=== PATIENT | female | born 1975 | race Caucasian/White ===

== ENCOUNTER 2016-07-11 06:19 | Inpatient (IN) | payer MEDICAID ==
[2016-07-11] MEDS ORDERED: Labetalol 5 MG/ML 5 ML Syringe IVPUSH ONE (06:33)
--- NOTE | 2016-07-11 06:36 | EDM.PDOC ---
<Shivam Lee - Last Filed: 07/11/16 06:33> ED HPI GENERAL MEDICAL PROBLEM - General Chief Complaint: Chest Pain Stated Complaint: SHORTNESS OF BREATH Time Seen by Provider: 07/11/16 06:33 Source of Information: Reports: Patient - History of Present Illness INITIAL COMMENTS - FREE TEXT/NARRATIVE: Patient presents with chest pain shortness breath since 1 AM, pain is 5/10 nonradiating not associated with diaphoresis No fever nausea vomiting chills sweats headache dizziness palpitation, she does have some shortness of breath Medications on file History of hypothyroidism, hypertension, COPD, CHF Blood pressure 240/140 HEENT NCAT PERRLA EOMI nares patent oropharynx clear neck supple no meningeal sign Chest clear throughout CV regular rate and rhythm Abdomen obese soft nontender nondistended bowel sounds all 4 quadrants Extremities four-inch motion strength 5 out of 5 no edema 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 Lab as below EKG Chest one view Assessment Hypertensive emergency Plan Labetalol 20 mg IV Left Upper Chest Pain Score (Numeric/FACES): 8 - Related Data Allergies Allergy/AdvReac Type Severity Reaction Status Date / Time No Known Allergies Allergy Verified 07/15/15 14:22 Home Meds: Home Meds Docusate Sodium [Colace] 100 mg PO BID #30 cap 07/19/15 [Rx] Furosemide [Lasix] 40 mg PO DAILY #30 tablet 01/17/16 [Rx] Levothyroxine Sodium [Synthroid] 25 mcg PO DAILY 07/11/16 [History] Losartan Potassium 50 mg PO BID 07/11/16 [History] Verapamil HCl [Verapamil Sr] 240 mg PO DAILY 07/11/16 [History] atorvaSTATin Calcium [Atorvastatin Calcium] 10 mg PO DAILY 07/11/16 [History] Past Medical History HEENT History: Reports: Head Other HEENT History: headaches Cardiovascular History: Reports: Heart Failure, Hypertension, SOB on exertion Respiratory History: Reports: Bronchitis, recurrent, COPD Gastrointestinal History: Reports: None Genitourinary History: Reports: Renal calculus, UTI, recurrent 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: , 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 (see below) Other OB/BYN History: removal of "top layer of cervix" was early [place] Neurological History: Reports: Headaches, chronic, Migraines Psychiatric History: Reports: None Endocrine/Metabolic History: Reports: Hypothyroidism Hematologic History: Reports: None Immunologic History: Reports: None Oncologic (Cancer) History: Reports: Cervix - Infectious Disease History Infectious Disease History: Reports: None - Past Surgical History HEENT Surgical History: Reports: None Cardiovascular Surgical History: Reports: None Respiratory Surgical History: Reports: None GI Surgical History: Reports: Cholecystectomy, Small bowel Female Surgical History: Reports: None Endocrine Surgical History: Reports: None Social & Family History - Family History Family Medical History: Noncontributory Cardiac: Reports: Bypass, Hypertension, [place] Respiratory: Reports: COPD GI: Reports: GI bleed, Other (see below) Other GI Family History: GI bleed from coumadin use Neurological: Reports: CVA Endocrine/Metabolic: Reports: Diabetes, type I, Diabetes, type II, Obesity/MBI 30+ - Tobacco Use Smoking Status *Q: Former Smoker Years of Tobacco use: 20 Packs/Tins Daily: 1 Used Tobacco, but Quit: No Month Tobacco Last Used: Second Hand Smoke Exposure: Yes - Caffeine Use Caffeine Use: Reports: Soda - Recreational Drug Use Recreational Drug Use: No Course - Vital Signs Last Recorded V/S: Last Vital Signs Temp 36.1 C 07/11/16 06:59 Pulse 75 07/11/16 06:59 Resp 16 07/11/16 06:59 BP 200/139 H 07/11/16 06:59 Pulse Ox 98 07/11/16 06:59 - Orders/Labs/Meds Orders: Active Orders 24 hr Category Date Time Status EKG 12 Lead [EKG Documentation Completion] [RC] STAT Care 07/11/16 08:14 Active EKG Documentation Completion [RC] STAT Care 07/11/16 06:32 Active Chest 1V Frontal [CR] Stat Exams 07/11/16 06:32 Taken Nitroglycerin/D5W [Nitroglycerin 25 MG/D5W 250 ML] Med 07/11/16 07:45 Active 25 mg in 250 ml IV TITRATE Sodium Chloride 0.9% [Normal Saline] 1,000 ml Med 07/11/16 06:45 Active IV STAT Medication Orders Sodium Chloride (Normal Saline) 1,000 mls @ 30 mls/hr IV STAT DYLON Last Admin: 07/11/16 06:41 Dose: 30 mls/hr Nitroglycerin/Dextrose (Nitroglycerin 25 Mg/D5w 250 Ml) 25 mg in 250 mls @ 6 mls/hr IV TITRATE DYLON; 10 MCG/MIN PRN Reason: Protocol Last Admin: 07/11/16 07:54 Dose: 10 mcg/min, 6 mls/hr Labs: Laboratory Tests 07/11/16 07/11/16 07/11/16 Range/Units 06:35 06:35 06:35 WBC 15.36 H (4.0-11.0) K/uL RBC 5.39 (4.30-5.90) M/uL Hgb 16.3 H (12.0-16.0) g/dL Hct 48.0 H (36.0-46.0) % MCV 89.1 (80.0-98.0) fL MCH 30.2 (27.0-32.0) pg MCHC 34.0 (31.0-37.0) g/dL RDW Std Deviation 44.5 (28.0-62.0) fl RDW Coeff of Oli 14 (11.0-15.0) % Plt Count 274 (150-400) K/uL MPV 10.80 (7.40-12.00) fL Neut % (Auto) 69.8 (48.0-80.0) % Lymph % (Auto) 21.8 (16.0-40.0) % Bertie % (Auto) 6.6 (0.0-15.0) % Eos % (Auto) 1.3 (0.0-7.0) % Baso % (Auto) 0.5 (0.0-1.5) % Neut # (Auto) 10.7 H (1.4-5.7) K/uL Lymph # (Auto) 3.4 H (0.6-2.4) K/uL Bertie # (Auto) 1.0 H (0.0-0.8) K/uL Eos # (Auto) 0.2 (0.0-0.7) K/uL Baso # (Auto) 0.1 (0.0-0.1) K/uL Sodium 136 (136-146) mmol/L Potassium 2.8 L (3.5-5.1) mmol/L Chloride 97 L (98-110) mmol/L Carbon Dioxide 25 (21-31) mmol/L BUN 22 (6.0-23.0) mg/dL Creatinine 1.4 (0.6-1.5) mg/dL Est Cr Clr Drug Dosing 37.22 mL/min Estimated GFR (MDRD) 41.0 ml/min Glucose 114 H (60-110) mg/dL Calcium 9.0 (8.8-10.8) mg/dL Total Bilirubin 0.6 (0.1-1.5) mg/dL AST 26 (5-40) IU/L ALT 23 (8-54) IU/L Alkaline Phosphatase 95 (40-150) Troponin I < 0.10 (0.0-0.29) NG/ML B-Natriuretic Peptide (<100) PG/ML Total Protein 7.0 (6.0-8.0) g/dL Albumin 3.8 (3.5-5.0) g/dL Globulin 3.2 (2.0-3.5) g/dL Albumin/Globulin Ratio 1.2 L (1.3-2.8) 07/11/16 Range/Units 06:35 WBC (4.0-11.0) K/uL RBC (4.30-5.90) M/uL Hgb (12.0-16.0) g/dL Hct (36.0-46.0) % MCV (80.0-98.0) fL MCH (27.0-32.0) pg MCHC (31.0-37.0) g/dL RDW Std Deviation (28.0-62.0) fl RDW Coeff of Oli (11.0-15.0) % Plt Count (150-400) K/uL MPV (7.40-12.00) fL Neut % (Auto) (48.0-80.0) % Lymph % (Auto) (16.0-40.0) % Bertie % (Auto) (0.0-15.0) % Eos % (Auto) (0.0-7.0) % Baso % (Auto) (0.0-1.5) % Neut # (Auto) (1.4-5.7) K/uL Lymph # (Auto) (0.6-2.4) K/uL Bertie # (Auto) (0.0-0.8) K/uL Eos # (Auto) (0.0-0.7) K/uL Baso # (Auto) (0.0-0.1) K/uL Sodium (136-146) mmol/L Potassium (3.5-5.1) mmol/L Chloride (98-110) mmol/L Carbon Dioxide (21-31) mmol/L BUN (6.0-23.0) mg/dL Creatinine (0.6-1.5) mg/dL Est Cr Clr Drug Dosing mL/min Estimated GFR (MDRD) ml/min Glucose (60-110) mg/dL Calcium (8.8-10.8) mg/dL Total Bilirubin (0.1-1.5) mg/dL AST (5-40) IU/L ALT (8-54) IU/L Alkaline Phosphatase (40-150) Troponin I (0.0-0.29) NG/ML B-Natriuretic Peptide 995 H (<100) PG/ML Total Protein (6.0-8.0) g/dL Albumin (3.5-5.0) g/dL Globulin (2.0-3.5) g/dL Albumin/Globulin Ratio (1.3-2.8) Meds: Medications Generic Name Dose Route Start Last Admin Trade Name Freq PRN Reason Stop Dose Admin Sodium Chloride 1,000 mls @ 30 mls/hr 07/11/16 06:45 07/11/16 06:41 Normal Saline IV 30 mls/hr STAT DYLON Administration Nitroglycerin/Dextrose 25 mg in 250 mls @ 6 mls/hr 07/11/16 07:45 07/11/16 07 :54 Nitroglycerin 25 Mg/D5w 250 Ml IV 10 mcg/min TITRATE DYLON 6 mls/hr Protocol Administration 10 MCG/MIN Discontinued Medications Generic Name Dose Route Start Last Admin Trade Name Freq PRN Reason Stop Dose Admin Aspirin 324 mg 07/11/16 07:47 07/11/16 08:14 Aspirin PO 07/11/16 07:48 Not Given ONETIME ONE Labetalol HCl 20 mg 07/11/16 06:33 07/11/16 06:40 Normodyne IVPUSH 07/11/16 06:34 20 mg .BOLUS ONE Administration Protocol Morphine Sulfate 2 mg 07/11/16 07:37 07/11/16 07:57 Morphine IVPUSH 07/11/16 07:38 2 mg ONETIME ONE Administration Ondansetron HCl 4 mg 04/21/17 07:17 07/11/16 07:21 Zofran IVPUSH 07/11/16 07:18 4 mg ONETIME ONE Administration Departure - Departure Disposition: Admitted As Inpatient 64 Clinical Impression: Hypertensive emergency, Hypertensive heart disease with congestive heart failure, Chest pain Forms: ED Department Discharge - My Orders Last 24 Hours: My Active Orders 07/11/16 07:45 Nitroglycerin/D5W [Nitroglycerin 25 MG/D5W 250 ML] 25 mg in 250 ml IV TITRATE 07/11/16 08:14 EKG 12 Lead [EKG Documentation Completion] [RC] STAT - Assessment/Plan Last 24 Hours: My Active Orders 07/11/16 07:45 Nitroglycerin/D5W [Nitroglycerin 25 MG/D5W 250 ML] 25 mg in 250 ml IV TITRATE 07/11/16 08:14 EKG 12 Lead [EKG Documentation Completion] [RC] STAT <Dc Drake - Last Filed: 07/11/16 08:46> ED HPI GENERAL MEDICAL PROBLEM - History of Present Illness INITIAL COMMENTS - FREE TEXT/NARRATIVE: Patient was placed on nitroglycerin drip in the emergency department repeat EKG demonstrated no interval change patient is markedly improved initial cardiac enzymes were negative hospital as has seen and evaluated patient emerged department patient will be admitted to the intensive care area with hypertensive emergency, chest pain, medical noncompliance, congestive heart failure ED ROS GENERAL - Review of Systems Review Of Systems: ROS reveals no pertinent complaints other than HPI. ED EXAM, GENERAL - Physical Exam Exam: See Below (See dictation) Departure - Departure Time of Disposition: 08:46 Condition: good
[2016-07-11] MEDS ORDERED: Sodium Chloride 0.9% 1,000 ML IV SCH (06:45)
[2016-07-11] MEDS ORDERED: Ondansetron 4 MG/2 ML SDV IVPUSH ONE (07:17)
[2016-07-11] MEDS ORDERED: Morphine 2 MG/ML Syringe IVPUSH ONE (07:37)
[2016-07-11] MEDS ORDERED: Nitroglycerin/D5W 25 MG/250 ML BOTTLE IV SCH ×2 (07:45→09:15)
[2016-07-11] MEDS ORDERED: Aspirin 81 MG Tab.Chew PO ONE (07:47)
--- NOTE | 2016-07-11 08:47 | PCM.HP ---
H&P History of Present Illness - General Date of Service: 07/11/16 - History of Present Illness Initial Comments - Free Text/Narative: This woman presented to the emergency department this morning with complaint of dyspnea. The dyspnea started at about a 100. She has a known prior history of hypertension and congestive heart failure. She's missed some of her medicine. She had run out of it. She has some left-sided chest pain when she first came to the emergency department. This has since resolved. She was treated with nitroglycerin drip her initial blood pressure was greater than one 240/120. She states she had been doing fairly well but last night developed orthopnea. She states she quit smoking within the past month although she had a cigarette yesterday. She does not use alcohol. Left Upper Chest Pain Score (Numeric/FACES): 8 - Related Data Allergies/Adverse Reactions: Allergies Allergy/AdvReac Type Severity Reaction Status Date / Time No Known Allergies Allergy Verified 07/15/15 14:22 Home Medications: Home Meds Docusate Sodium [Colace] 100 mg PO BID #30 cap 07/19/15 [Rx] Furosemide [Lasix] 40 mg PO DAILY #30 tablet 01/17/16 [Rx] Levothyroxine Sodium [Synthroid] 25 mcg PO DAILY 07/11/16 [History] Losartan Potassium 50 mg PO BID 07/11/16 [History] Verapamil HCl [Verapamil Sr] 240 mg PO DAILY 07/11/16 [History] atorvaSTATin Calcium [Atorvastatin Calcium] 10 mg PO DAILY 07/11/16 [History] Past Medical History HEENT History: Reports: Head Other HEENT History: headaches Cardiovascular History: Reports: Heart Failure, High cholesterol, Hypertension, SOB on exertion Respiratory History: Reports: Bronchitis, recurrent, COPD Gastrointestinal History: Reports: None Genitourinary History: Reports: Renal calculus, UTI, recurrent 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 Denies: Alzheimers disease, CVA Psychiatric History: Reports: None Endocrine/Metabolic History: Reports: Hypothyroidism. Denies: Zak's disease , Diabetes, type I, Diabetes, type II Hematologic History: Reports: None Immunologic History: Reports: None Oncologic (Cancer) History: Reports: Cervix - Infectious Disease History Infectious Disease History: Reports: Chicken pox - Past Surgical History HEENT Surgical History: Reports: None Cardiovascular Surgical History: Reports: None, Other (see below) (She underwent coronary angiogram 3 or 4 years ago. She does not remember the results. She's never had stenting done) Respiratory Surgical History: Reports: None GI Surgical History: Reports: Cholecystectomy, Small bowel (Surgery for volvulus.) Female Surgical History: Reports: None Endocrine Surgical History: Reports: None Social & Family History - Family History Family Medical History: Noncontributory Cardiac: Reports: Bypass, Hypertension, [place] Respiratory: Reports: COPD GI: Reports: GI bleed, Other (see below) Other GI Family History: GI bleed from coumadin use Neurological: Reports: CVA Endocrine/Metabolic: Reports: Diabetes, type I, Diabetes, type II, Obesity/MBI 30+ - Tobacco Use Smoking Status *Q: Former Smoker Years of Tobacco use: 20 Packs/Tins Daily: 1 Used Tobacco, but Quit: Yes Month Tobacco Last Used: 05/2016 Tobacco Use Comment: She smokes yesterday. Second Hand Smoke Exposure: Yes - Caffeine Use Caffeine Use: Reports: Coffee - Alcohol Use Alcohol Use Comment: She denies regular alcohol use. - Recreational Drug Use Recreational Drug Use: No H&P Review of Systems - Review of Systems: Review Of Systems: See Below General: Reports: other (She feels hot or flushed). Denies: fever Pulmonary: Reports: Shortness of Breath. Denies: Hemoptysis Cardiovascular: Reports: chest pain (Now resolved) Gastrointestinal: Denies: Abdominal pain, Hematemesis, Hematochezia, Vomiting Genitourinary: Denies: dysuria, frequency, burning, hematuria Neurological: Denies: Confusion Exam - Exam Exam: See Below - Vital Signs Vital Signs: Last Vital Signs Temp 97 F 07/11/16 06:59 Pulse 75 07/11/16 06:59 Resp 16 07/11/16 06:59 BP 200/139 H 07/11/16 06:59 Pulse Ox 98 07/11/16 06:59 Weight: 96.162 kg - Exam General: alert, oriented, cooperative, other (Him dyspnea at rest) HEENT: EOMI Neck: trachea midline Lungs: Clear to auscultation, Other (Increased work of breathing noted.). No: Crackles, Rales Cardiovascular: regular rate, regular rhythm. No: systolic murmur, diastolic murmur Abdomen: soft. No: tenderness Rectal (Female) Exam: Deferred Extremities: edema (1+ ankle edema) Neurological: cranial nerves intact, normal speech Neuro Extensive - Motor, Sensory, Reflexes: No: facial palsy (L), facial palsy ( R), hemiplagia (L), hemiplagia (R) Psychiatric: alert. No: agitated - Patient Data Lab Results last 24 hrs: Laboratory Results - last 24 hr 07/11/16 07/11/16 07/11/16 Range/Units 06:35 06:35 06:35 WBC 15.36 H (4.0-11.0) K/uL RBC 5.39 (4.30-5.90) M/uL Hgb 16.3 H (12.0-16.0) g/dL Hct 48.0 H (36.0-46.0) % MCV 89.1 (80.0-98.0) fL MCH 30.2 (27.0-32.0) pg MCHC 34.0 (31.0-37.0) g/dL RDW Std Deviation 44.5 (28.0-62.0) fl RDW Coeff of Oli 14 (11.0-15.0) % Plt Count 274 (150-400) K/uL MPV 10.80 (7.40-12.00) fL Neut % (Auto) 69.8 (48.0-80.0) % Lymph % (Auto) 21.8 (16.0-40.0) % [place] % (Auto) 6.6 (0.0-15.0) % Eos % (Auto) 1.3 (0.0-7.0) % Baso % (Auto) 0.5 (0.0-1.5) % Neut # (Auto) 10.7 H (1.4-5.7) K/uL Lymph # (Auto) 3.4 H (0.6-2.4) K/uL [place] # (Auto) 1.0 H (0.0-0.8) K/uL Eos # (Auto) 0.2 (0.0-0.7) K/uL Baso # (Auto) 0.1 (0.0-0.1) K/uL Sodium 136 (136-146) mmol/L Potassium 2.8 L (3.5-5.1) mmol/L Chloride 97 L (98-110) mmol/L Carbon Dioxide 25 (21-31) mmol/L BUN 22 (6.0-23.0) mg/dL Creatinine 1.4 (0.6-1.5) mg/dL Est Cr Clr Drug Dosing 37.22 mL/min Estimated GFR (MDRD) 41.0 ml/min Glucose 114 H (60-110) mg/dL Calcium 9.0 (8.8-10.8) mg/dL Total Bilirubin 0.6 (0.1-1.5) mg/dL AST 26 (5-40) IU/L ALT 23 (8-54) IU/L Alkaline Phosphatase 95 (40-150) Troponin I < 0.10 (0.0-0.29) NG/ML B-Natriuretic Peptide (<100) PG/ML Total Protein 7.0 (6.0-8.0) g/dL Albumin 3.8 (3.5-5.0) g/dL Globulin 3.2 (2.0-3.5) g/dL Albumin/Globulin Ratio 1.2 L (1.3-2.8) 07/11/16 Range/Units 06:35 WBC (4.0-11.0) K/uL RBC (4.30-5.90) M/uL Hgb (12.0-16.0) g/dL Hct (36.0-46.0) % MCV (80.0-98.0) fL MCH (27.0-32.0) pg MCHC (31.0-37.0) g/dL RDW Std Deviation (28.0-62.0) fl RDW Coeff of Oli (11.0-15.0) % Plt Count (150-400) K/uL MPV (7.40-12.00) fL Neut % (Auto) (48.0-80.0) % Lymph % (Auto) (16.0-40.0) % [place] % (Auto) (0.0-15.0) % Eos % (Auto) (0.0-7.0) % Baso % (Auto) (0.0-1.5) % Neut # (Auto) (1.4-5.7) K/uL Lymph # (Auto) (0.6-2.4) K/uL [place] # (Auto) (0.0-0.8) K/uL Eos # (Auto) (0.0-0.7) K/uL Baso # (Auto) (0.0-0.1) K/uL Sodium (136-146) mmol/L Potassium (3.5-5.1) mmol/L Chloride (98-110) mmol/L Carbon Dioxide (21-31) mmol/L BUN (6.0-23.0) mg/dL Creatinine (0.6-1.5) mg/dL Est Cr Clr Drug Dosing mL/min Estimated GFR (MDRD) ml/min Glucose (60-110) mg/dL Calcium (8.8-10.8) mg/dL Total Bilirubin (0.1-1.5) mg/dL AST (5-40) IU/L ALT (8-54) IU/L Alkaline Phosphatase (40-150) Troponin I (0.0-0.29) NG/ML B-Natriuretic Peptide 995 H (<100) PG/ML Total Protein (6.0-8.0) g/dL Albumin (3.5-5.0) g/dL Globulin (2.0-3.5) g/dL Albumin/Globulin Ratio (1.3-2.8) Result Diagrams: 07/11/16 06:35 07/11/16 06:35 Alvin Results last 24 hrs: EKG 12-lead shows LVH with repolarization abnormality; sinus rhythm; flipped T waves ST depression particularly anterolaterally. This was compared to prior EKG and noted to have similar findings his prior EKG. Imaging Impressions last 24 hrs: Chest x-ray cardiomegaly *Q Meaningful Use (ADM) - VTE *Q VTE Criteria *Q: - Stroke *Q Stroke Criteria *Q: - AMI *Q AMI Criteria *Q: - Problem List (1) Hypertensive emergency SNOMED Code(s): 277096124206384 ICD Code: I16.1 - HYPERTENSIVE EMERGENCY Status: Acute Current Visit: Yes (2) Congestive heart failure SNOMED Code(s): 17694099 ICD Code: I50.9 - HEART FAILURE, UNSPECIFIED Status: Acute Current Visit : No Problem List Initiated/Reviewed/Updated: Yes Orders Last 24hrs: Active Orders 24 hr Category Date Time Status EKG 12 Lead [EKG Documentation Completion] [RC] STAT Care 07/11/16 08:14 Active EKG Documentation Completion [RC] STAT Care 07/11/16 06:32 Active Chest 1V Frontal [CR] Stat Exams 07/11/16 06:32 Taken Nitroglycerin/D5W [Nitroglycerin 25 MG/D5W 250 ML] Med 07/11/16 07:45 Active 25 mg in 250 ml IV TITRATE Sodium Chloride 0.9% [Normal Saline] 1,000 ml Med 07/11/16 06:45 Active IV STAT Medication Orders Sodium Chloride (Normal Saline) 1,000 mls @ 30 mls/hr IV STAT DYLON Last Admin: 07/11/16 06:41 Dose: 30 mls/hr Nitroglycerin/Dextrose (Nitroglycerin 25 Mg/D5w 250 Ml) 25 mg in 250 mls @ 6 mls/hr IV TITRATE DYLON; 10 MCG/MIN PRN Reason: Protocol Last Admin: 07/11/16 07:54 Dose: 10 mcg/min, 6 mls/hr Assessment/Plan Comment:: see orders ICU on nitroglycerine drip
[2016-07-11] MEDS ORDERED: Ondansetron 4 MG Tab.DIS PO PRN (08:56)
[2016-07-11] MEDS ORDERED: Bisacodyl 5 MG Tab PO PRN (08:56)
[2016-07-11] MEDS ORDERED: Temazepam 15 MG Cap PO PRN (08:56)
[2016-07-11] MEDS: Verapamil 240 MG Tab.ER PO SCH (09:54)
[2016-07-11] MEDS: Potassium Chloride 20 MEQ Tab.ER PO SCH ×2 (09:54→16:20)
[2016-07-11] MEDS: Docusate Sodium 100 MG Cap PO SCH ×2 (09:54→20:02)
[2016-07-11] MEDS: Heparin Sodium 5,000 Units/ML Vial SUBCUT SCH ×2 (09:54→16:19)
--- NOTE | 2016-07-11 10:59 | CR ---
EXAM DATE: 07/11/16 PATIENT'S AGE: 41 Patient: HUGO LACKEY Facility: [place], [place] Site . Site : [id number] Study: XRay Chest [id number]/21/2017 6:41:40 AM Ordering Physician: Doctor Paulino Final Report: HISTORY: Chest pain. FINDINGS: AP portable chest radiograph is compared to 15 July 2015. EKG leads overlying the thorax. There is stable cardiomegaly. Pulmonary vasculature is free of cephalization. No consolidation or pleural effusion is seen. IMPRESSION: Stable cardiomegaly without CHF. Dictated by Cierra Licona MD @ 07/11/2016 7:08:57 AM Dictated by: Cierra Licona MD @ 07/11/2016 07:09:04 (Electronic Signature) Report Signed by Proxy and Original Signed Document filed in the Medical Record. [email or web address]
[2016-07-11] MEDS: Acetaminophen 325 MG Tab PO PRN ×3 (11:18→20:55)
[2016-07-11] MEDS: Morphine 4 MG/ML Syringe IVPUSH PRN ×3 (13:21→20:53)
[2016-07-11] MEDS: Sodium Chloride 0.9% 1,000 ML IV SCH (16:18)
[2016-07-11] MEDS: Ondansetron 4 MG/2 ML SDV IVPUSH PRN ×2 (16:23→20:48)
[2016-07-11] MEDS ORDERED: Furosemide 40 MG/4 ML VIAL IVPUSH ONE (19:33)
--- NOTE | 2016-07-11 19:35 | PCM.SN ---
- Free Text/Narrative Note: she is sleeping comfortably but nurse notes dyspnea with minimal activity. lasix added. She is off of the nitro drip.
[2016-07-11] MEDS: Losartan 50 MG Tab PO SCH (20:02)
[2016-07-12] MEDS: Heparin Sodium 5,000 Units/ML Vial SUBCUT SCH ×3 (00:08→17:06)
[2016-07-12] MEDS: Ondansetron 4 MG/2 ML SDV IVPUSH PRN ×2 (01:16→07:37)
[2016-07-12] MEDS: Morphine 4 MG/ML Syringe IVPUSH PRN ×2 (01:16→07:36)
[2016-07-12] MEDS: Levothyroxine 25 MCG Tab PO SCH (07:22)
[2016-07-12] MEDS: Losartan 50 MG Tab PO SCH ×2 (08:54→20:18)
[2016-07-12] MEDS: Docusate Sodium 100 MG Cap PO SCH ×2 (08:54→20:18)
[2016-07-12] MEDS: Verapamil 240 MG Tab.ER PO SCH (08:54)
[2016-07-12] MEDS: Potassium Chloride 20 MEQ Tab.ER PO SCH ×2 (08:59→17:06)
[2016-07-12] MEDS: atorvaSTATin 10 MG Tab PO SCH (08:59)
--- NOTE | 2016-07-12 11:54 | PCM.PN ---
- General Info Date of Service: 07/12/16 Subjective Update: she feels that her breathing is better but she has a severe global/frontal headache. - Patient Data Vitals - most recent: Last Vital Signs Temp 97 F 07/12/16 08:00 Pulse 77 07/11/16 09:36 Resp 8 L 07/12/16 10:00 BP 159/110 H 07/12/16 10:00 Pulse Ox 94 L 07/12/16 10:00 Weight - most recent: 100.5 kg I&O - last 24 hours: Intake & Output 07/11/16 07/12/16 07/12/16 22:59 06:59 14:59 Intake Total 1086 900 Output Total 300 420 Balance 786 480 Lab Results last 24 hrs: Laboratory Results - last 24 hr 07/11/16 07/11/16 07/11/16 Range/Units 13:08 15:12 20:30 WBC (4.0-11.0) K/uL RBC (4.30-5.90) M/uL Hgb (12.0-16.0) g/dL Hct (36.0-46.0) % MCV (80.0-98.0) fL MCH (27.0-32.0) pg MCHC (31.0-37.0) g/dL RDW Std Deviation (28.0-62.0) fl RDW Coeff of Oli (11.0-15.0) % Plt Count (150-400) K/uL MPV (7.40-12.00) fL Neut % (Auto) (48.0-80.0) % Lymph % (Auto) (16.0-40.0) % [place] % (Auto) (0.0-15.0) % Eos % (Auto) (0.0-7.0) % Baso % (Auto) (0.0-1.5) % Neut # (Auto) (1.4-5.7) K/uL Lymph # (Auto) (0.6-2.4) K/uL [place] # (Auto) (0.0-0.8) K/uL Eos # (Auto) (0.0-0.7) K/uL Baso # (Auto) (0.0-0.1) K/uL Nucleated RBC % /100WBC Nucleated RBCs # K/uL Sodium (136-146) mmol/L Potassium (3.5-5.1) mmol/L Chloride (98-110) mmol/L Carbon Dioxide (21-31) mmol/L BUN (6.0-23.0) mg/dL Creatinine (0.6-1.5) mg/dL Est Cr Clr Drug Dosing mL/min Estimated GFR (MDRD) ml/min Glucose (60-110) mg/dL Calcium (8.8-10.8) mg/dL Phosphorus (2.4-4.7) mg/dL Magnesium (1.5-2.3) mEq/L Total Bilirubin (0.1-1.5) mg/dL AST (5-40) IU/L ALT (8-54) IU/L Alkaline Phosphatase (40-150) Troponin I < 0.10 < 0.10 (0.0-0.29) NG/ML B-Natriuretic Peptide (<100) PG/ML Total Protein (6.0-8.0) g/dL Albumin (3.5-5.0) g/dL Globulin (2.0-3.5) g/dL Albumin/Globulin Ratio (1.3-2.8) Triglycerides (10-190) mg/dL Cholesterol (131-240) mg/dL LDL Cholesterol, Calc (60-180) mg/dL VLDL Cholesterol (5-55) mg/dL HDL Cholesterol (40-80) mg/dL Cholesterol/HDL Ratio (3.3-6.0) Urine Color YELLOW Urine Appearance SLT CLOUDY Urine pH 5.0 (5.0-8.0) Ur Specific [place] >= 1.030 (1.001-1.035) Urine Protein >=300 (NEGATIVE) mg/dL Urine Glucose (UA) NEGATIVE (NEGATIVE) mg/dL Urine Ketones NEGATIVE (NEGATIVE) mg/dL Urine Occult Blood NEGATIVE (NEGATIVE) Urine Nitrite NEGATIVE (NEGATIVE) Urine Bilirubin SMALL H (NEGATIVE) Urine Urobilinogen 0.2 (<2.0) EU/dL Ur Leukocyte Esterase NEGATIVE (NEGATIVE) Urine RBC 0-2 (0-2/HPF) Urine WBC 0-2 (0-5/HPF) Ur Epithelial Cells MODERATE (NONE-FEW) Amorphous Sediment LIGHT (NEGATIVE) Urine Bacteria 1+ H (NEGATIVE) Hyaline Casts 0-3 (0-2/LPF) 07/12/16 07/12/16 07/12/16 Range/Units 05:20 05:20 05:20 WBC 13.41 H (4.0-11.0) K/uL RBC 4.90 (4.30-5.90) M/uL Hgb 14.8 (12.0-16.0) g/dL Hct 45.0 (36.0-46.0) % MCV 91.8 (80.0-98.0) fL MCH 30.2 (27.0-32.0) pg MCHC 32.9 (31.0-37.0) g/dL RDW Std Deviation 47.9 (28.0-62.0) fl RDW Coeff of Oli 14 (11.0-15.0) % Plt Count 291 (150-400) K/uL MPV 11.30 (7.40-12.00) fL Neut % (Auto) 80.5 H (48.0-80.0) % Lymph % (Auto) 15.7 L (16.0-40.0) % [place] % (Auto) 3.6 (0.0-15.0) % Eos % (Auto) 0.1 (0.0-7.0) % Baso % (Auto) 0.1 (0.0-1.5) % Neut # (Auto) 10.8 H (1.4-5.7) K/uL Lymph # (Auto) 2.1 (0.6-2.4) K/uL [place] # (Auto) 0.5 (0.0-0.8) K/uL Eos # (Auto) 0.0 (0.0-0.7) K/uL Baso # (Auto) 0.0 (0.0-0.1) K/uL Nucleated RBC % 0.0 /100WBC Nucleated RBCs # 0 K/uL Sodium 135 L (136-146) mmol/L Potassium 3.5 (3.5-5.1) mmol/L Chloride 98 (98-110) mmol/L Carbon Dioxide 21 (21-31) mmol/L BUN 34 H (6.0-23.0) mg/dL Creatinine 2.2 H (0.6-1.5) mg/dL Est Cr Clr Drug Dosing 23.68 mL/min Estimated GFR (MDRD) 24.4 ml/min Glucose 122 H (60-110) mg/dL Calcium 8.1 L (8.8-10.8) mg/dL Phosphorus 6.7 H (2.4-4.7) mg/dL Magnesium 1.7 (1.5-2.3) mEq/L Total Bilirubin 0.6 (0.1-1.5) mg/dL AST 54 H (5-40) IU/L ALT 57 H (8-54) IU/L Alkaline Phosphatase 101 (40-150) Troponin I (0.0-0.29) NG/ML B-Natriuretic Peptide 557 H (<100) PG/ML Total Protein 6.9 (6.0-8.0) g/dL Albumin 3.8 (3.5-5.0) g/dL Globulin 3.1 (2.0-3.5) g/dL Albumin/Globulin Ratio 1.2 L (1.3-2.8) Triglycerides 270 H (10-190) mg/dL Cholesterol 204 (131-240) mg/dL LDL Cholesterol, Calc 118 (60-180) mg/dL VLDL Cholesterol 54 (5-55) mg/dL HDL Cholesterol 32 L (40-80) mg/dL Cholesterol/HDL Ratio 6.4 H (3.3-6.0) Urine Color Urine Appearance Urine pH (5.0-8.0) Ur Specific [place] (1.001-1.035) Urine Protein (NEGATIVE) mg/dL Urine Glucose (UA) (NEGATIVE) mg/dL Urine Ketones (NEGATIVE) mg/dL Urine Occult Blood (NEGATIVE) Urine Nitrite (NEGATIVE) Urine Bilirubin (NEGATIVE) Urine Urobilinogen (<2.0) EU/dL Ur Leukocyte Esterase (NEGATIVE) Urine RBC (0-2/HPF) Urine WBC (0-5/HPF) Ur Epithelial Cells (NONE-FEW) Amorphous Sediment (NEGATIVE) Urine Bacteria (NEGATIVE) Hyaline Casts (0-2/LPF) Med Orders - Current: Current Medications Acetaminophen (Tylenol) 650 mg PO Q4H PRN PRN Reason: Pain (Mild 1-3)/fever Last Admin: 07/11/16 20:55 Dose: 650 mg Atorvastatin Calcium (Lipitor) 10 mg PO DAILY [facility] Last Admin: 07/12/16 08:59 Dose: 10 mg Bisacodyl (Dulcolax) 5 mg PO DAILY PRN PRN Reason: Constipation Docusate Sodium (Colace) 100 mg PO BID [facility] Last Admin: 07/12/16 08:54 Dose: 100 mg Furosemide (Lasix) 40 mg PO DAILY [facility] Heparin Sodium (Porcine) (Heparin Sodium) 5,000 units SUBCUT Q8H [facility] Last Admin: 07/12/16 08:54 Dose: 5,000 units Sodium Chloride (Normal Saline) 1,000 mls @ 75 mls/hr IV ASDIRECTED [facility] Last Admin: 07/11/16 16:18 Dose: 75 mls/hr Levothyroxine Sodium (Levothyroxine) 25 mcg PO ACBREAKFAST [facility] Last Admin: 07/12/16 07:22 Dose: 25 mcg Losartan Potassium (Cozaar) 50 mg PO BID [facility] Last Admin: 07/12/16 08:54 Dose: 50 mg Morphine Sulfate (Morphine) 4 mg IVPUSH Q2H PRN PRN Reason: Pain (severe 7-10) Last Admin: 07/12/16 07:36 Dose: 4 mg Ondansetron HCl (Zofran Odt) 4 mg PO Q4H PRN PRN Reason: nausea, able to take PO Last Admin: 07/11/16 11:18 Dose: 4 mg Ondansetron HCl (Zofran) 4 mg IVPUSH Q4H PRN PRN Reason: Nausea Last Admin: 07/12/16 07:37 Dose: 4 mg Potassium Chloride (Klor-Con M20) 40 meq PO BIDMEALS [facility] Last Admin: 07/12/16 08:59 Dose: 40 meq Temazepam (Restoril) 15 mg PO BEDTIME PRN PRN Reason: Sleep Verapamil HCl (Calan Sr) 240 mg PO DAILY [facility] Last Admin: 07/12/16 08:54 Dose: 240 mg Discontinued Medications Aspirin (Aspirin) 324 mg PO ONETIME ONE Stop: 07/11/16 07:48 Last Admin: 07/11/16 08:14 Dose: Not Given Furosemide (Lasix) 40 mg IVPUSH NOW ONE Stop: 07/11/16 19:34 Last Admin: 07/11/16 20:02 Dose: 40 mg Sodium Chloride (Normal Saline) 1,000 mls @ 30 mls/hr IV STAT [facility] Last Admin: 07/11/16 06:41 Dose: 30 mls/hr Nitroglycerin/Dextrose (Nitroglycerin 25 Mg/D5w 250 Ml) 25 mg in 250 mls @ 6 mls/hr IV TITRATE [facility]; 10 MCG/MIN PRN Reason: Protocol Last Titration: 07/11/16 16:03 Dose: 5 mcg/min, 3 mls/hr Nitroglycerin/Dextrose (Nitroglycerin 25 Mg/D5w 250 Ml) 25 mg in 250 mls @ 3 mls/hr IV TITRATE [facility]; 5 MCG/MIN PRN Reason: Protocol Labetalol HCl (Normodyne) 20 mg IVPUSH .BOLUS ONE PRN Reason: Protocol Stop: 07/11/16 06:34 Last Admin: 07/11/16 06:40 Dose: 20 mg Morphine Sulfate (Morphine) 2 mg IVPUSH ONETIME ONE Stop: 07/11/16 07:38 Last Admin: 07/11/16 07:57 Dose: 2 mg Ondansetron HCl (Zofran) 4 mg IVPUSH ONETIME ONE Stop: 07/11/16 07:18 Last Admin: 07/11/16 07:21 Dose: 4 mg - Exam General: alert, oriented, cooperative Lungs: Clear to auscultation, Normal respiratory effort Cardiovascular: Regular Rate, Regular Rhythm Abdomen: no tenderness Extremities: no edema Psy/Mental Status: alert, normal affect - Problem List & Annotations (1) Hypertensive emergency SNOMED Code(s): 131069729244782 Code(s): I16.1 - HYPERTENSIVE EMERGENCY Status: Acute Current Visit: Yes (2) Congestive heart failure SNOMED Code(s): 07013101 Code(s): I50.9 - HEART FAILURE, UNSPECIFIED Status: Acute Current Visit: No - Problem List Review Problem List Initiated/Reviewed/Updated: Yes - My Orders Last 24 Hours: My Active Orders 07/11/16 21:00 Losartan [Cozaar] 50 mg PO BID 07/12/16 07:30 Levothyroxine 25 mcg PO ACBREAKFAST 07/12/16 09:00 Furosemide [Lasix] 40 mg PO DAILY atorvaSTATin [Lipitor] 10 mg PO DAILY 07/12/16 12:00 Nitroglycerin [Nitro-Bid 2%] 1 gm TOP Q6H 07/13/16 05:11 B-TYPE NATRIURETIC PEPTIDE,BNP [CHEM] AM CBC WITH AUTO DIFF [HEME] AM COMPREHENSIVE METABOLIC PN,CMP [CHEM] AM MAGNESIUM [CHEM] AM 07/14/16 05:11 B-TYPE NATRIURETIC PEPTIDE,BNP [CHEM] AM CBC WITH AUTO DIFF [HEME] AM COMPREHENSIVE METABOLIC PN,CMP [CHEM] AM MAGNESIUM [CHEM] AM - Plan Plan:: see orders ICU on nitroglycerine deisi Zheng MD 07/12/2016 I spoke with MIGUEL Butler. Will add topical nitrate for HTN. Will hold lasix for this am. monitor creatinine and electrolytes. fentanyl and toradol ordered for headache. Jus Zheng MD
[2016-07-12] MEDS: Furosemide 40 MG Tab PO SCH (11:57)
--- NOTE | 2016-07-12 11:59 | PCM.SN ---
- Free Text/Narrative Note: She told me that she has only had one menses in the past year. It was about two months ago. Her youngest child is twelve years old.
[2016-07-12] MEDS: Nitroglycerin 2% Oint 1 GM UD Packet TOP SCH ×2 (12:00→17:07)
[2016-07-12] MEDS ORDERED: fentaNYL 250 MCG/5 ML SDV IVPUSH PRN (12:07)
[2016-07-12] MEDS ORDERED: Ketorolac 30 MG/ML SDV IVPUSH PRN (12:07)
[2016-07-12] MEDS: fentaNYL 100 MCG/2 ML SDV IVPUSH PRN ×3 (13:21→20:44)
[2016-07-12] MEDS: Sodium Chloride 0.9% 1,000 ML IV SCH (14:36)
[2016-07-13] MEDS: Nitroglycerin 2% Oint 1 GM UD Packet TOP SCH ×2 (00:21→05:53)
[2016-07-13] MEDS: Heparin Sodium 5,000 Units/ML Vial SUBCUT SCH ×3 (00:22→17:47)
[2016-07-13] MEDS: Sodium Chloride 0.9% 1,000 ML IV SCH (03:59)
[2016-07-13] MEDS: Ondansetron 4 MG/2 ML SDV IVPUSH PRN (05:39)
[2016-07-13] MEDS: fentaNYL 100 MCG/2 ML SDV IVPUSH PRN ×3 (05:54→21:11)
[2016-07-13] MEDS: Levothyroxine 25 MCG Tab PO SCH (06:38)
[2016-07-13] MEDS: Docusate Sodium 100 MG Cap PO SCH ×2 (08:22→20:59)
[2016-07-13] MEDS: atorvaSTATin 10 MG Tab PO SCH (08:22)
[2016-07-13] MEDS: Verapamil 240 MG Tab.ER PO SCH (08:22)
[2016-07-13] MEDS: Potassium Chloride 20 MEQ Tab.ER PO SCH ×2 (08:22→17:48)
[2016-07-13] MEDS: Losartan 50 MG Tab PO SCH ×2 (08:23→21:00)
[2016-07-13] MEDS: Furosemide 40 MG Tab PO SCH ×2 (08:28→10:52)
[2016-07-13] MEDS ORDERED: Isosorbide Mononitrate 30 MG Tab.ER PO SCH (09:00)
--- NOTE | 2016-07-13 10:42 | PCM.PN ---
- General Info Date of Service: 07/13/16 Subjective Update: Headache is resolved. She's not feeling short of breath. She is generally feeling much better. - Patient Data Vitals - most recent: Last Vital Signs Temp 97.2 F 07/13/16 07:37 Pulse 70 07/13/16 07:37 Resp 16 07/13/16 07:37 BP 154/91 H 07/13/16 08:23 Pulse Ox 95 07/13/16 09:00 Weight - most recent: 102 kg I&O - last 24 hours: Intake & Output 07/12/16 07/13/16 07/13/16 22:59 06:59 14:59 Intake Total 1300 1500 Output Total 440 1350 Balance 860 150 Lab Results last 24 hrs: Laboratory Results - last 24 hr 07/12/16 07/13/16 07/13/16 Range/Units 05:20 05:10 05:10 WBC 11.87 H (4.0-11.0) K/uL RBC 4.46 (4.30-5.90) M/uL Hgb 13.4 (12.0-16.0) g/dL Hct 41.5 (36.0-46.0) % MCV 93.0 (80.0-98.0) fL MCH 30.0 (27.0-32.0) pg MCHC 32.3 (31.0-37.0) g/dL RDW Std Deviation 49.5 (28.0-62.0) fl RDW Coeff of Oli 15 (11.0-15.0) % Plt Count 258 (150-400) K/uL MPV 11.10 (7.40-12.00) fL Neut % (Auto) 73.9 (48.0-80.0) % Lymph % (Auto) 18.5 (16.0-40.0) % [place] % (Auto) 6.8 (0.0-15.0) % Eos % (Auto) 0.5 (0.0-7.0) % Baso % (Auto) 0.3 (0.0-1.5) % Neut # (Auto) 8.8 H (1.4-5.7) K/uL Lymph # (Auto) 2.2 (0.6-2.4) K/uL [place] # (Auto) 0.8 (0.0-0.8) K/uL Eos # (Auto) 0.1 (0.0-0.7) K/uL Baso # (Auto) 0.0 (0.0-0.1) K/uL Nucleated RBC % 0.0 /100WBC Nucleated RBCs # 0 K/uL Sodium 133 L (136-146) mmol/L Potassium 3.6 (3.5-5.1) mmol/L Chloride 101 (98-110) mmol/L Carbon Dioxide 24 (21-31) mmol/L BUN 26 H (6.0-23.0) mg/dL Creatinine 1.5 (0.6-1.5) mg/dL Est Cr Clr Drug Dosing 34.74 mL/min Estimated GFR (MDRD) 37.9 ml/min Glucose 107 (60-110) mg/dL Calcium 8.0 L (8.8-10.8) mg/dL Magnesium 1.7 (1.5-2.3) mEq/L Total Bilirubin 0.5 (0.1-1.5) mg/dL AST 30 (5-40) IU/L ALT 40 (8-54) IU/L Alkaline Phosphatase 80 (40-150) B-Natriuretic Peptide (<100) PG/ML Total Protein 6.0 (6.0-8.0) g/dL Albumin 3.3 L (3.5-5.0) g/dL Globulin 2.7 (2.0-3.5) g/dL Albumin/Globulin Ratio 1.2 L (1.3-2.8) HCG, Qual NEGATIVE (NEG) 07/13/16 Range/Units 05:10 WBC (4.0-11.0) K/uL RBC (4.30-5.90) M/uL Hgb (12.0-16.0) g/dL Hct (36.0-46.0) % MCV (80.0-98.0) fL MCH (27.0-32.0) pg MCHC (31.0-37.0) g/dL RDW Std Deviation (28.0-62.0) fl RDW Coeff of Oli (11.0-15.0) % Plt Count (150-400) K/uL MPV (7.40-12.00) fL Neut % (Auto) (48.0-80.0) % Lymph % (Auto) (16.0-40.0) % [place] % (Auto) (0.0-15.0) % Eos % (Auto) (0.0-7.0) % Baso % (Auto) (0.0-1.5) % Neut # (Auto) (1.4-5.7) K/uL Lymph # (Auto) (0.6-2.4) K/uL [place] # (Auto) (0.0-0.8) K/uL Eos # (Auto) (0.0-0.7) K/uL Baso # (Auto) (0.0-0.1) K/uL Nucleated RBC % /100WBC Nucleated RBCs # K/uL Sodium (136-146) mmol/L Potassium (3.5-5.1) mmol/L Chloride (98-110) mmol/L Carbon Dioxide (21-31) mmol/L BUN (6.0-23.0) mg/dL Creatinine (0.6-1.5) mg/dL Est Cr Clr Drug Dosing mL/min Estimated GFR (MDRD) ml/min Glucose (60-110) mg/dL Calcium (8.8-10.8) mg/dL Magnesium (1.5-2.3) mEq/L Total Bilirubin (0.1-1.5) mg/dL AST (5-40) IU/L ALT (8-54) IU/L Alkaline Phosphatase (40-150) B-Natriuretic Peptide 378 H (<100) PG/ML Total Protein (6.0-8.0) g/dL Albumin (3.5-5.0) g/dL Globulin (2.0-3.5) g/dL Albumin/Globulin Ratio (1.3-2.8) HCG, Qual (NEG) Alvin Results last 24 hrs: Microbiology 07/11/16 20:30 Urine Culture - Final Urine, Voided MIXED TERENCE >100,000 CFU/ML 07/11/16 15:12 Aerobic Blood Culture - Preliminary Blood - Venous NO GROWTH AFTER 1 DAY Anaerobic Blood Culture - Preliminary NO GROWTH AFTER 1 DAY 07/11/16 15:06 Aerobic Blood Culture - Preliminary Blood NO GROWTH AFTER 1 DAY Anaerobic Blood Culture - Preliminary NO GROWTH AFTER 1 DAY Med Orders - Current: Current Medications Acetaminophen (Tylenol) 650 mg PO Q4H PRN PRN Reason: Pain (Mild 1-3)/fever Last Admin: 07/11/16 20:55 Dose: 650 mg Atorvastatin Calcium (Lipitor) 10 mg PO DAILY [facility] Last Admin: 07/13/16 08:22 Dose: 10 mg Bisacodyl (Dulcolax) 5 mg PO DAILY PRN PRN Reason: Constipation Docusate Sodium (Colace) 100 mg PO BID [facility] Last Admin: 07/13/16 08:22 Dose: 100 mg Fentanyl (Sublimaze) 50 mcg IVPUSH Q1H PRN PRN Reason: Pain Last Admin: 07/13/16 05:54 Dose: 50 mcg Furosemide (Lasix) 40 mg PO DAILY [facility] Last Admin: 07/13/16 08:28 Dose: Not Given Heparin Sodium (Porcine) (Heparin Sodium) 5,000 units SUBCUT Q8H [facility] Last Admin: 07/13/16 08:23 Dose: 5,000 units Sodium Chloride (Normal Saline) 1,000 mls @ 75 mls/hr IV ASDIRECTED [facility] Last Admin: 07/13/16 03:59 Dose: 75 mls/hr Isosorbide Mononitrate (Imdur) 30 mg PO DAILY [facility] Last Admin: 07/13/16 08:22 Dose: 30 mg Levothyroxine Sodium (Levothyroxine) 25 mcg PO ACBREAKFAST [facility] Last Admin: 07/13/16 06:38 Dose: 25 mcg Losartan Potassium (Cozaar) 50 mg PO BID [facility] Last Admin: 07/13/16 08:23 Dose: 50 mg Morphine Sulfate (Morphine) 4 mg IVPUSH Q2H PRN PRN Reason: Pain (severe 7-10) Last Admin: 07/12/16 07:36 Dose: 4 mg Nitroglycerin (Nitro-Bid 2%) 1 gm TOP Q6H [facility] Last Admin: 07/13/16 05:53 Dose: 1 gm Ondansetron HCl (Zofran Odt) 4 mg PO Q4H PRN PRN Reason: nausea, able to take PO Last Admin: 07/11/16 11:18 Dose: 4 mg Ondansetron HCl (Zofran) 4 mg IVPUSH Q4H PRN PRN Reason: Nausea Last Admin: 07/13/16 05:39 Dose: 4 mg Potassium Chloride (Klor-Con M20) 40 meq PO BIDMEALS [facility] Last Admin: 07/13/16 08:22 Dose: 40 meq Temazepam (Restoril) 15 mg PO BEDTIME PRN PRN Reason: Sleep Verapamil HCl (Calan Sr) 240 mg PO DAILY [facility] Last Admin: 07/13/16 08:22 Dose: 240 mg Discontinued Medications Aspirin (Aspirin) 324 mg PO ONETIME ONE Stop: 07/11/16 07:48 Last Admin: 07/11/16 08:14 Dose: Not Given Fentanyl (Sublimaze) 50 mcg IVPUSH Q1H PRN PRN Reason: Pain Furosemide (Lasix) 40 mg IVPUSH NOW ONE Stop: 07/11/16 19:34 Last Admin: 07/11/16 20:02 Dose: 40 mg Sodium Chloride (Normal Saline) 1,000 mls @ 30 mls/hr IV STAT [facility] Last Admin: 07/11/16 06:41 Dose: 30 mls/hr Nitroglycerin/Dextrose (Nitroglycerin 25 Mg/D5w 250 Ml) 25 mg in 250 mls @ 6 mls/hr IV TITRATE [facility]; 10 MCG/MIN PRN Reason: Protocol Last Titration: 07/11/16 16:03 Dose: 5 mcg/min, 3 mls/hr Nitroglycerin/Dextrose (Nitroglycerin 25 Mg/D5w 250 Ml) 25 mg in 250 mls @ 3 mls/hr IV TITRATE [facility]; 5 MCG/MIN PRN Reason: Protocol Ketorolac Tromethamine (Toradol) 30 mg IVPUSH Q6H PRN PRN Reason: Pain Stop: 07/17/16 12:07 Labetalol HCl (Normodyne) 20 mg IVPUSH .BOLUS ONE PRN Reason: Protocol Stop: 07/11/16 06:34 Last Admin: 07/11/16 06:40 Dose: 20 mg Morphine Sulfate (Morphine) 2 mg IVPUSH ONETIME ONE Stop: 07/11/16 07:38 Last Admin: 07/11/16 07:57 Dose: 2 mg Ondansetron HCl (Zofran) 4 mg IVPUSH ONETIME ONE Stop: 07/11/16 07:18 Last Admin: 07/11/16 07:21 Dose: 4 mg - Exam General: alert, oriented Neck: supple, trachea midline Lungs: Clear to auscultation Cardiovascular: Regular Rate, Regular Rhythm - Problem List & Annotations (1) Hypertensive emergency SNOMED Code(s): 613783785464553 Code(s): I16.1 - HYPERTENSIVE EMERGENCY Status: Acute Current Visit: Yes (2) Congestive heart failure SNOMED Code(s): 94622768 Code(s): I50.9 - HEART FAILURE, UNSPECIFIED Status: Acute Current Visit: No - Problem List Review Problem List Initiated/Reviewed/Updated: Yes - My Orders Last 24 Hours: My Active Orders 07/12/16 12:00 Nitroglycerin [Nitro-Bid 2%] 1 gm TOP Q6H 07/12/16 13:16 fentaNYL [Sublimaze] 50 mcg IVPUSH Q1H PRN 07/12/16 14:48 Transfer Patient (Change bed) [ADT] Routine 07/13/16 09:00 Isosorbide Mononitrate [Imdur] 30 mg PO DAILY 07/14/16 05:11 B-TYPE NATRIURETIC PEPTIDE,BNP [CHEM] AM CBC WITH AUTO DIFF [HEME] AM COMPREHENSIVE METABOLIC PN,CMP [CHEM] AM MAGNESIUM [CHEM] AM - Plan Plan:: see orders ICU on nitroglycerine deisi Zheng MD 07/12/2016 I spoke with MIGUEL Butler. Will add topical nitrate for HTN. Will hold lasix for this am. monitor creatinine and electrolytes. fentanyl and toradol ordered for headache. Jus Zheng MD 07/13/2016 Her echocardiogram results/reading is pending. Will restart her oral Lasix today. I note her serum creatinine is improved compared yesterday. Toradol was discontinued because of her renal function she is to ambulate today. She was transferred to medical surgical status yesterday the change to by mouth Imdur today. Anticipate discharge tomorrow likely to
[2016-07-13] MEDS ORDERED: Isosorbide Mononitrate 30 MG Tab.ER PO ONE (10:46)
[2016-07-13] MEDS ORDERED: Polyethylene Glycol 3350 Powder 17 GM Packet PO PRN (13:26)
[2016-07-13] MEDS: Nicotine 21 MG/24 Hr Patch TRDERM SCH (23:24)
[2016-07-14] MEDS: Heparin Sodium 5,000 Units/ML Vial SUBCUT SCH ×2 (00:36→08:11)
[2016-07-14] MEDS: Ondansetron 4 MG/2 ML SDV IVPUSH PRN (04:57)
[2016-07-14] MEDS: Levothyroxine 25 MCG Tab PO SCH (07:16)
[2016-07-14] MEDS: Verapamil 240 MG Tab.ER PO SCH (08:11)
[2016-07-14] MEDS: atorvaSTATin 10 MG Tab PO SCH (08:11)
[2016-07-14] MEDS: Furosemide 40 MG Tab PO SCH (08:14)
[2016-07-14] MEDS: Docusate Sodium 100 MG Cap PO SCH (08:15)
[2016-07-14] MEDS: Losartan 50 MG Tab PO SCH (08:15)
[2016-07-14] MEDS: Potassium Chloride 20 MEQ Tab.ER PO SCH (08:15)
[2016-07-14] MEDS: Nicotine 21 MG/24 Hr Patch TRDERM SCH (08:16)
[2016-07-14] MEDS ORDERED: Isosorbide Mononitrate 30 MG Tab.ER PO SCH (09:00)
--- NOTE | 2016-07-14 09:28 | PCM.DCSUM1 ---
Discharge Summary - Hospital Course Brief History: she was admitted with accelerated HTN and congestive heart failure - Discharge Data Discharge Date: 07/14/16 Discharge Disposition: Home, Self-Care 01 Condition: Fair - Discharge Diagnosis/Problem(s) (1) Hypertensive emergency SNOMED Code(s): 089662372816877 ICD Code: I16.1 - HYPERTENSIVE EMERGENCY Status: Acute Current Visit: Yes (2) Congestive heart failure SNOMED Code(s): 38711863 ICD Code: I50.9 - HEART FAILURE, UNSPECIFIED Status: Acute Current Visit : No - Patient Summary/Data Hospital Course: Her initial blood pressure was 240/120 mmHg. She had severe dyspnea on admission she was given extra Lasix. She was initially treated with a nitroglycerin continuous infusion. She was then treated with nitroglycerin topically and then went Imdur metoprolol XL 50 mg is added on the day of discharge. She is ambulatory without dyspnea on the time of discharge and she feels much better. She did have a severe headache on hospital day one this improved as her blood pressure came down. She also had symptoms of visual scotomata. Her dyspnea is much improved and she feels ready for discharge on the day of discharge the her serum creatinine was 1.4 on admission and increased to 2.2 on the day after admission. This was thought to be due to the use of Lasix extra dosing. Her creatinine is back down to 1.4 on the day of discharge. Followup is being arranged a local primary care physician. Chest x-ray showed cardiomegaly. Echo cardiogram results are pending at the time of discharge IMpression: accelerated Hypertension chf migraine headache chronic kidney disease follow up with local primary care physician , Dr Beck, within a week or so. - Discharge Plan Prescriptions/Med Rec: Isosorbide Mononitrate [Imdur] 60 mg PO DAILY #30 tab.er Metoprolol Succinate [Toprol XL] 50 mg PO DAILY #30 tab.er Home Medications: Home Meds Docusate Sodium [Colace] 100 mg PO BID #30 cap 07/19/15 [Rx] Furosemide [Lasix] 40 mg PO DAILY #30 tablet 01/17/16 [Rx] Levothyroxine Sodium [Synthroid] 25 mcg PO DAILY 07/11/16 [History] Losartan Potassium 50 mg PO BID 07/11/16 [History] Verapamil HCl [Verapamil Sr] 240 mg PO DAILY 07/11/16 [History] atorvaSTATin Calcium [Atorvastatin Calcium] 10 mg PO DAILY 07/11/16 [History] Isosorbide Mononitrate [Imdur] 60 mg PO DAILY #30 tab.er 07/14/16 [Rx] Metoprolol Succinate [Toprol XL] 50 mg PO DAILY #30 tab.er 07/14/16 [Rx] Patient Handouts: Hypertension, [id number], Heart Failure, [id number] Referrals: Amado Beck MD [Physician] - 07/22/16 8:30 am - Patient Data Vitals - Most Recent: Last Vital Signs Temp 98 F 07/14/16 05:00 Pulse 87 07/14/16 07:43 Resp 18 07/14/16 07:43 BP 147/112 H 07/14/16 08:15 Pulse Ox 94 L 07/14/16 09:00 Weight - Most Recent: 102.5 kg I&O - Last 24 hours: Intake & Output 07/13/16 07/14/16 07/14/16 22:59 06:59 14:59 Intake Total 2210 500 Output Total 1355 1550 Balance 855 -1050 Lab Results - Last 24 hrs: Laboratory Results - last 24 hr 07/14/16 07/14/16 07/14/16 Range/Units 05:45 05:45 05:45 WBC 10.19 (4.0-11.0) K/uL RBC 4.49 (4.30-5.90) M/uL Hgb 13.7 (12.0-16.0) g/dL Hct 42.3 (36.0-46.0) % MCV 94.2 (80.0-98.0) fL MCH 30.5 (27.0-32.0) pg MCHC 32.4 (31.0-37.0) g/dL RDW Std Deviation 50.1 (28.0-62.0) fl RDW Coeff of Oli 15 (11.0-15.0) % Plt Count 238 (150-400) K/uL MPV 11.10 (7.40-12.00) fL Neut % (Auto) 63.6 (48.0-80.0) % Lymph % (Auto) 25.7 (16.0-40.0) % [place]royo % (Auto) 8.7 (0.0-15.0) % Eos % (Auto) 1.3 (0.0-7.0) % Baso % (Auto) 0.7 (0.0-1.5) % Neut # (Auto) 6.5 H (1.4-5.7) K/uL Lymph # (Auto) 2.6 H (0.6-2.4) K/uL [place] # (Auto) 0.9 H (0.0-0.8) K/uL Eos # (Auto) 0.1 (0.0-0.7) K/uL Baso # (Auto) 0.1 (0.0-0.1) K/uL Nucleated RBC % 0.0 /100WBC Nucleated RBCs # 0 K/uL Sodium 141 (136-146) mmol/L Potassium 3.5 (3.5-5.1) mmol/L Chloride 105 (98-110) mmol/L Carbon Dioxide 26 (21-31) mmol/L BUN 18 (6.0-23.0) mg/dL Creatinine 1.4 (0.6-1.5) mg/dL Est Cr Clr Drug Dosing 37.22 mL/min Estimated GFR (MDRD) 41.0 ml/min Glucose 118 H (60-110) mg/dL Calcium 8.4 L (8.8-10.8) mg/dL Magnesium 1.8 (1.5-2.3) mEq/L Total Bilirubin 0.3 (0.1-1.5) mg/dL AST 32 (5-40) IU/L ALT 41 (8-54) IU/L Alkaline Phosphatase 96 (40-150) B-Natriuretic Peptide 551 H (<100) PG/ML Total Protein 6.1 (6.0-8.0) g/dL Albumin 3.4 L (3.5-5.0) g/dL Globulin 2.7 (2.0-3.5) g/dL Albumin/Globulin Ratio 1.3 (1.3-2.8) SWATHI Results - Last 24 hrs: Microbiology 07/11/16 15:12 Aerobic Blood Culture - Preliminary Blood - Venous NO GROWTH AFTER 2 DAYS Anaerobic Blood Culture - Preliminary NO GROWTH AFTER 2 DAYS 07/11/16 15:06 Aerobic Blood Culture - Preliminary Blood NO GROWTH AFTER 2 DAYS Anaerobic Blood Culture - Preliminary NO GROWTH AFTER 2 DAYS 07/11/16 20:30 Urine Culture - Final Urine, Voided MIXED TERENCE >100,000 CFU/ML Med Orders - Current: Current Medications Acetaminophen (Tylenol) 650 mg PO Q4H PRN PRN Reason: Pain (Mild 1-3)/fever Last Admin: 07/11/16 20:55 Dose: 650 mg Atorvastatin Calcium (Lipitor) 10 mg PO DAILY [facility] Last Admin: 07/14/16 08:11 Dose: 10 mg Bisacodyl (Dulcolax) 5 mg PO DAILY PRN PRN Reason: Constipation Docusate Sodium (Colace) 100 mg PO BID [facility] Last Admin: 07/14/16 08:15 Dose: 100 mg Fentanyl (Sublimaze) 50 mcg IVPUSH Q1H PRN PRN Reason: Pain Last Admin: 07/13/16 21:11 Dose: 50 mcg Furosemide (Lasix) 40 mg PO DAILY [facility] Last Admin: 07/14/16 08:14 Dose: 40 mg Heparin Sodium (Porcine) (Heparin Sodium) 5,000 units SUBCUT Q8H [facility] Last Admin: 07/14/16 08:11 Dose: 5,000 units Isosorbide Mononitrate (Imdur) 60 mg PO DAILY [facility] Last Admin: 07/14/16 08:15 Dose: 60 mg Levothyroxine Sodium (Levothyroxine) 25 mcg PO ACBREAKFAST [facility] Last Admin: 07/14/16 07:16 Dose: 25 mcg Losartan Potassium (Cozaar) 50 mg PO BID [facility] Last Admin: 07/14/16 08:15 Dose: 50 mg Metoprolol Succinate (Toprol Xl) 50 mg PO DAILY [facility] Morphine Sulfate (Morphine) 4 mg IVPUSH Q2H PRN PRN Reason: Pain (severe 7-10) Last Admin: 07/12/16 07:36 Dose: 4 mg Nicotine (Habitrol) 21 mg TRDERM DAILY [facility] Last Admin: 07/14/16 08:16 Dose: Not Given Ondansetron HCl (Zofran Odt) 4 mg PO Q4H PRN PRN Reason: nausea, able to take PO Last Admin: 07/11/16 11:18 Dose: 4 mg Ondansetron HCl (Zofran) 4 mg IVPUSH Q4H PRN PRN Reason: Nausea Last Admin: 07/14/16 04:57 Dose: 4 mg Polyethylene Glycol (Miralax) 17 gm PO DAILY PRN PRN Reason: Constipation Last Admin: 07/13/16 13:35 Dose: 17 gm Potassium Chloride (Klor-Con M20) 40 meq PO BIDMEALS [facility] Last Admin: 07/14/16 08:15 Dose: 40 meq Temazepam (Restoril) 15 mg PO BEDTIME PRN PRN Reason: Sleep Verapamil HCl (Calan Sr) 240 mg PO DAILY [facility] Last Admin: 07/14/16 08:11 Dose: 240 mg Discontinued Medications Aspirin (Aspirin) 324 mg PO ONETIME ONE Stop: 07/11/16 07:48 Last Admin: 07/11/16 08:14 Dose: Not Given Fentanyl (Sublimaze) 50 mcg IVPUSH Q1H PRN PRN Reason: Pain Furosemide (Lasix) 40 mg IVPUSH NOW ONE Stop: 07/11/16 19:34 Last Admin: 07/11/16 20:02 Dose: 40 mg Sodium Chloride (Normal Saline) 1,000 mls @ 30 mls/hr IV STAT [facility] Last Admin: 07/11/16 06:41 Dose: 30 mls/hr Nitroglycerin/Dextrose (Nitroglycerin 25 Mg/D5w 250 Ml) 25 mg in 250 mls @ 6 mls/hr IV TITRATE DYLON; 10 MCG/MIN PRN Reason: Protocol Last Titration: 07/11/16 16:03 Dose: 5 mcg/min, 3 mls/hr Nitroglycerin/Dextrose (Nitroglycerin 25 Mg/D5w 250 Ml) 25 mg in 250 mls @ 3 mls/hr IV TITRATE DYLON; 5 MCG/MIN PRN Reason: Protocol Sodium Chloride (Normal Saline) 1,000 mls @ 75 mls/hr IV ASDIRECTED [facility] Last Admin: 07/13/16 03:59 Dose: 75 mls/hr Isosorbide Mononitrate (Imdur) 30 mg PO DAILY [facility] Last Admin: 07/13/16 08:22 Dose: 30 mg Isosorbide Mononitrate (Imdur) 30 mg PO ONETIME ONE Stop: 07/13/16 10:47 Last Admin: 07/13/16 10:51 Dose: 30 mg Ketorolac Tromethamine (Toradol) 30 mg IVPUSH Q6H PRN PRN Reason: Pain Stop: 07/17/16 12:07 Labetalol HCl (Normodyne) 20 mg IVPUSH .BOLUS ONE PRN Reason: Protocol Stop: 07/11/16 06:34 Last Admin: 07/11/16 06:40 Dose: 20 mg Morphine Sulfate (Morphine) 2 mg IVPUSH ONETIME ONE Stop: 07/11/16 07:38 Last Admin: 07/11/16 07:57 Dose: 2 mg Nitroglycerin (Nitro-Bid 2%) 1 gm TOP Q6H [facility] Last Admin: 07/13/16 05:53 Dose: 1 gm Ondansetron HCl (Zofran) 4 mg IVPUSH ONETIME ONE Stop: 07/11/16 07:18 Last Admin: 07/11/16 07:21 Dose: 4 mg *Q Meaningful Use (DIS) - VTE *Q VTE Criteria *Q: - Stroke *Q Stroke Criteria *Q: - AMI *Q AMI Criteria *Q:
[2016-07-14] MEDS ORDERED: Metoprolol Succinate 50 MG Tab.ER PO SCH (09:30)
[2016-07-14 10:55] VITALS: BP 144/86
--- NOTE | 2016-07-14 11:45 | ECHO ---
EXAM DATE: 07/11/16 The echocardiogram report can be seen in this patient's EMR (Electronic Medical Record) in the Reports section. [email or web address]
== END 2016-07-14 12:05 | disposition home or self-care (01) | DRG 305 ==
LOC: MW.ED 06:19 → MW.ICU 08:46 → MW.MS 07-13 11:49
PROVIDERS: ADMIT Family Medicine; ATTEND Family Medicine
DX: I16.1 Hypertensive emergency (principal); I50.9 Heart failure, unspecified; G43.909 Migraine, unspecified, not intractable, without status migrainosus; I12.9 Hypertensive chronic kidney disease with stage 1 through stage 4 chronic kidney disease, or unspecified chronic kidney disease; N18.9 Chronic kidney disease, unspecified; E78.00 Pure hypercholesterolemia, unspecified; E13.9 Other specified diabetes mellitus without complications; Z85.41 Personal history of malignant neoplasm of cervix uteri; Z79.899 Other long term (current) drug therapy; Z87.891 Personal history of nicotine dependence
CPT/HCPCS: 36415; 71010; 71010-26; 80053; 80061; 81001; 83735; 83880; 84100; 84484; 84703; 85025; 87040; 87086; 93005; 93306; 96361; 96365; 96366; 96375; 99284; 99285-25; A9270-GY; J1644; J1940; J2270; J2405; J3010; J7040

== ENCOUNTER 2016-08-22 11:37 | Inpatient (IN) | payer MEDICAID ==
[2016-08-22] MEDS ORDERED: Sodium Chloride 0.9% 10 ML Syringe FLUSH PRN ×2 (12:34→15:51)
[2016-08-22] MEDS ORDERED: Sodium Chloride 0.9% 2.5 ML Syringe FLUSH PRN ×2 (12:34→15:51)
--- NOTE | 2016-08-22 12:51 | EDM.PDOC ---
ED HPI GENERAL MEDICAL PROBLEM - General Chief Complaint: General Stated Complaint: MED REFILL Time Seen by Provider: 08/22/16 12:30 Source of Information: Reports: Patient History Limitations: Reports: No Limitations - History of Present Illness INITIAL COMMENTS - FREE TEXT/NARRATIVE: History of present illness: [41-year-old female coming in complaining of acute exacerbation of her congestive heart failure, and that she is again out of meds. Patient became she does have a doctor's appointment a to be worked up and to get routine prescriptions but in the meantime she short of breath and has exertional issues. ] Review of systems: As per history of present illness and below otherwise all systems reviewed and negative. Past medical history: As per history of present illness and as reviewed below otherwise noncontributory. Surgical history: As per history of present illness and as reviewed below otherwise noncontributory. Social history: No reported history of drug or alcohol abuse. Family history: As per history of present illness and as reviewed below otherwise noncontributory. Physical exam: HEENT: Atraumatic, normocephalic, pupils reactive, negative for conjunctival pallor or scleral icterus, mucous membranes moist, throat clear, neck supple, nontender, trachea midline. Lungs: Clear to auscultation, breath sounds equal bilaterally, chest nontender. Heart: S1S2, regular, negative for clicks, rubs, or JVD. Abdomen: Soft, nondistended, nontender. Negative for masses or hepatosplenomegaly. Negative for costovertebral tenderness. Pelvis: Stable nontender. Genitourinary: Deferred. Rectal: Deferred. Extremities: peripheral edema bilaterally, negative for cords or calf pain. Neurovascular unremarkable. Neuro: Awake, alert, oriented. Cranial nerves II through XII unremarkable. Cerebellum unremarkable. Motor and sensory unremarkable throughout. Exam nonfocal. Patient has significantly high BP and continues to have high BP throughout her visit Save 2-3+ pitting edema is to bilateral lower extremities well assessment was benign save subjective complaint of exertional dyspnea. Chest x-ray is negative for CHF at this time. Diagnostics: [CXR, CBC, CMP, ] Therapeutics: [] Impression: [edema] Plan: [admit for bp control Definitive disposition and diagnosis as appropriate pending reevaluation and review of above. - Related Data Allergies Allergy/AdvReac Type Severity Reaction Status Date / Time No Known Allergies Allergy Verified 08/22/16 12:08 Home Meds: Home Meds Docusate Sodium [Colace] 100 mg PO BID #30 cap 07/19/15 [Rx] Furosemide [Lasix] 40 mg PO DAILY #30 tablet 01/17/16 [Rx] Levothyroxine Sodium [Synthroid] 25 mcg PO DAILY 07/11/16 [History] Losartan Potassium 50 mg PO BID 07/11/16 [History] Verapamil HCl [Verapamil Sr] 240 mg PO DAILY 07/11/16 [History] atorvaSTATin Calcium [Atorvastatin Calcium] 10 mg PO DAILY 07/11/16 [History] Isosorbide Mononitrate [Imdur] 60 mg PO DAILY #30 tab.er 07/14/16 [Rx] Metoprolol Succinate [Toprol XL] 50 mg PO DAILY #30 tab.er 07/14/16 [Rx] Furosemide [Lasix] 40 mg PO DAILY #10 tablet 08/22/16 [Rx] Losartan Potassium 50 mg PO BID #20 tablet 08/22/16 [Rx] Past Medical History HEENT History: Reports: Head Other HEENT History: headaches Cardiovascular History: Reports: Heart Failure, High Cholesterol, Hypertension, SOB on Exertion Respiratory History: Reports: Bronchitis, Recurrent, COPD Other Respiratory History: not on home 02 Gastrointestinal History: Reports: None Genitourinary History: Reports: Renal Calculus, UTI, Recurrent [employer] History: Reports: , Other (See Below) Other OB/BYN History: removal of "top layer of cervix" was early CA Neurological History: Reports: Headaches, Chronic, Migraines Psychiatric History: Reports: None Endocrine/Metabolic History: Reports: Hypothyroidism Hematologic History: Reports: None Immunologic History: Reports: None Oncologic (Cancer) History: Reports: Cervix - Infectious Disease History Infectious Disease History: Reports: Chicken Pox - Past Surgical History HEENT Surgical History: Reports: None GI Surgical History: Reports: Cholecystectomy, Small Bowel Endocrine Surgical History: Reports: None Social & Family History - Family History Family Medical History: Noncontributory Cardiac: Reports: Bypass, Hypertension, CA Respiratory: Reports: COPD GI: Reports: GI bleed, Other (See Below) Other GI Family History: GI bleed from coumadin use Neurological: Reports: CVA Endocrine/Metabolic: Reports: Diabetes, Type I, Diabetes, type II, Obesity/MBI 30+ - Tobacco Use Smoking Status *Q: Former Smoker Years of Tobacco use: 20 Packs/Tins Daily: 1 Used Tobacco, but Quit: Yes Month Tobacco Last Used: 3 months ago Second Hand Smoke Exposure: No - Caffeine Use Caffeine Use: Reports: Soda Caffeine Use Comment: 1 drink/day - Recreational Drug Use Recreational Drug Use: No ED ROS GENERAL - Review of Systems Review Of Systems: See Below (see hpi) ED EXAM, GENERAL - Physical Exam Exam: See Below (see hpi) Course - Vital Signs Last Recorded V/S: Last Vital Signs Temp 36.0 C 08/22/16 11:55 Pulse 89 08/22/16 14:24 Resp 15 08/22/16 14:24 BP 213/124 H 08/22/16 14:24 Pulse Ox 93 L 08/22/16 14:24 - Orders/Labs/Meds Orders: Active Orders 24 hr Category Date Time Status CXR [Chest 2V] [CR] Stat Exams 08/22/16 12:55 Taken DRUG SCREEN, SERUM REFLEX [REF] Stat Lab 08/22/16 14:47 Ordered UA W/MICROSCOPIC [URIN] Stat Lab 08/22/16 14:47 Uncollected Sodium Chloride 0.9% [Saline Flush] Med 08/22/16 12:34 Active 10 ml FLUSH ASDIRECTED PRN Sodium Chloride 0.9% [Saline Flush] Med 08/22/16 12:34 Active 2.5 ml FLUSH ASDIRECTED PRN Saline Lock Insert [OM.PC] Stat Oth 08/22/16 12:33 Ordered Medication Orders Sodium Chloride (Saline Flush) 10 ml FLUSH ASDIRECTED PRN PRN Reason: Keep Vein Open Sodium Chloride (Saline Flush) 2.5 ml FLUSH ASDIRECTED PRN PRN Reason: Keep Vein Open Labs: Laboratory Tests 08/22/16 08/22/16 08/22/16 Range/Units 12:49 12:49 12:49 WBC 10.85 (4.0-11.0) K/uL RBC 4.40 (4.30-5.90) M/uL Hgb 13.5 (12.0-16.0) g/dL Hct 40.9 (36.0-46.0) % MCV 93.0 (80.0-98.0) fL MCH 30.7 (27.0-32.0) pg MCHC 33.0 (31.0-37.0) g/dL RDW Std Deviation 51.7 (28.0-62.0) fl RDW Coeff of Oli 16 H (11.0-15.0) % Plt Count 221 (150-400) K/uL MPV 10.40 (7.40-12.00) fL Neut % (Auto) 73.3 (48.0-80.0) % Lymph % (Auto) 17.9 (16.0-40.0) % [place] % (Auto) 5.5 (0.0-15.0) % Eos % (Auto) 2.9 (0.0-7.0) % Baso % (Auto) 0.4 (0.0-1.5) % Neut # (Auto) 8.0 H (1.4-5.7) K/uL Lymph # (Auto) 1.9 (0.6-2.4) K/uL [place] # (Auto) 0.6 (0.0-0.8) K/uL Eos # (Auto) 0.3 (0.0-0.7) K/uL Baso # (Auto) 0.0 (0.0-0.1) K/uL Nucleated RBC % 0.0 /100WBC Nucleated RBCs # 0 K/uL Sodium 139 (136-146) mmol/L Potassium 3.9 (3.5-5.1) mmol/L Chloride 108 (98-110) mmol/L Carbon Dioxide 21 (21-31) mmol/L BUN 13 (6.0-23.0) mg/dL Creatinine 1.3 (0.6-1.5) mg/dL Est Cr Clr Drug Dosing 40.08 mL/min Estimated GFR (MDRD) 44.7 ml/min Glucose 90 (60-110) mg/dL Calcium 8.8 (8.8-10.8) mg/dL Total Bilirubin 0.7 (0.1-1.5) mg/dL AST 19 (5-40) IU/L ALT 23 (8-54) IU/L Alkaline Phosphatase 87 (40-150) B-Natriuretic Peptide 483 H (<100) PG/ML Total Protein 6.9 (6.0-8.0) g/dL Albumin 3.9 (3.5-5.0) g/dL Globulin 3.0 (2.0-3.5) g/dL Albumin/Globulin Ratio 1.3 (1.3-2.8) Meds: Medications Generic Name Dose Route Start Last Admin Trade Name Camilla PRN Reason Stop Dose Admin Sodium Chloride 10 ml 08/22/16 12:34 Saline Flush FLUSH ASDIRECTED PRN Keep Vein Open Sodium Chloride 2.5 ml 08/22/16 12:34 Saline Flush FLUSH ASDIRECTED PRN Keep Vein Open Discontinued Medications Generic Name Dose Route Start Last Admin Trade Name Camilla PRN Reason Stop Dose Admin Furosemide 40 mg 08/22/16 14:10 08/22/16 14:24 Lasix IVPUSH 08/22/16 14:11 40 mg NOW ONE Administration Potassium Chloride 40 meq 08/22/16 14:10 08/22/16 14:29 Klor-Con M20 PO 08/22/16 14:11 40 meq ONETIME ONE Administration Departure - Departure Time of Disposition: 14:20 Disposition: Admitted As Inpatient 64 Condition: good Clinical Impression: CHF, Congestive heart failure, Hypertension - Discharge Information Prescriptions: Furosemide [Lasix] 40 mg PO DAILY #10 tablet Losartan Potassium 50 mg PO BID #20 tablet Referrals: PCP,Unknown [Primary Care Provider] - Forms: ED Department Discharge - My Orders Last 24 Hours: My Active Orders 08/22/16 12:33 Saline Lock Insert [OM.PC] Stat 08/22/16 12:34 Sodium Chloride 0.9% [Saline Flush] 10 ml FLUSH ASDIRECTED PRN Sodium Chloride 0.9% [Saline Flush] 2.5 ml FLUSH ASDIRECTED PRN 08/22/16 12:55 CXR [Chest 2V] [CR] Stat 08/22/16 14:47 DRUG SCREEN, SERUM REFLEX [REF] Stat UA W/MICROSCOPIC [URIN] Stat - Assessment/Plan Last 24 Hours: My Active Orders 08/22/16 12:33 Saline Lock Insert [OM.PC] Stat 08/22/16 12:34 Sodium Chloride 0.9% [Saline Flush] 10 ml FLUSH ASDIRECTED PRN Sodium Chloride 0.9% [Saline Flush] 2.5 ml FLUSH ASDIRECTED PRN 08/22/16 12:55 CXR [Chest 2V] [CR] Stat 08/22/16 14:47 DRUG SCREEN, SERUM REFLEX [REF] Stat UA W/MICROSCOPIC [URIN] Stat
[2016-08-22] MEDS ORDERED: Furosemide 40 MG/4 ML VIAL IVPUSH ONE (14:10)
[2016-08-22] MEDS ORDERED: Potassium Chloride 20 MEQ Tab.ER PO ONE (14:10)
[2016-08-22] MEDS ORDERED: cloNIDine 0.1 MG Tab PO ONE (14:51)
[2016-08-22] MEDS: Metoprolol Tartrate 5 MG/5 ML SDV IVPUSH SCH ×3 (15:10→15:34)
--- NOTE | 2016-08-22 15:11 | CR ---
EXAM DATE: 08/22/16 PATIENT'S AGE: 41 Patient: HUGO LACKEY Facility: [place], [place] Site . Site : [id number] Study: XRay Chest [id number]/2/2017 1:25:32 PM Ordering Physician: Doctor Paulino Final Report: INDICATIONS: Shortness of breath. TECHNIQUE: Chest 2 view. COMPARISON: Chest radiograph July 11, 2016. FINDINGS: No pneumothorax, pleural effusion or airspace consolidation. No pulmonary edema. Cardiomegaly, unchanged. Mediastinal contours are stable. Upper abdomen and osseous structures show no acute abnormality. IMPRESSION: No evidence of acute cardiopulmonary disease. Dictated by Greg Wei MD @ 08/22/2016 1:37:18 PM Dictated by: Greg Wei MD @ 08/22/2016 13:37:25 (Electronic Signature) Report Signed by Proxy. [facility]ENTERLidya
[2016-08-22] MEDS ORDERED: Acetaminophen 325 MG Tab PO PRN (15:51)
[2016-08-22] MEDS ORDERED: Morphine 2 MG/ML Syringe IVPUSH PRN (15:51)
[2016-08-22] MEDS ORDERED: Ondansetron 4 MG Tab.DIS PO PRN (15:51)
[2016-08-22] MEDS ORDERED: Nitroglycerin/D5W 25 MG/250 ML BOTTLE IV SCH (16:00)
--- NOTE | 2016-08-22 16:02 | PCM.HP ---
H&P History of Present Illness - General Date of Service: 08/22/16 Admit Problem/Dx: Admission Diagnosis/Problem Admission Diagnosis/Problem Hypertensive heart disease with congestive heart failure Source of Information: Patient History Limitations: Reports: No Limitations - History of Present Illness Onset of Symptoms: Reports: Gradual Duration of Symptoms: Reports: Week(s):, Chronic, Getting Worse Severity: Moderate Improves with: Reports: None Worsens with: Reports: None headache Pain Score (Numeric/FACES): 10 - Related Data Allergies/Adverse Reactions: Allergies Allergy/AdvReac Type Severity Reaction Status Date / Time No Known Allergies Allergy Verified 08/22/16 12:08 Home Medications: Home Meds Furosemide [Lasix] 40 mg PO DAILY #30 tablet 01/17/16 [Rx] Levothyroxine Sodium [Synthroid] 25 mcg PO DAILY 07/11/16 [History] Losartan Potassium 50 mg PO BID 07/11/16 [History] Verapamil HCl [Verapamil Sr] 240 mg PO DAILY 07/11/16 [History] atorvaSTATin Calcium [Atorvastatin Calcium] 10 mg PO DAILY 07/11/16 [History] Metoprolol Succinate [Toprol XL] 50 mg PO DAILY #30 tab.er 07/14/16 [Rx] Potassium Chloride 10 meq PO DAILY 08/22/16 [History] Past Medical History HEENT History: Reports: Head Other HEENT History: headaches Cardiovascular History: Reports: Heart Failure, High Cholesterol, Hypertension, SOB on Exertion Respiratory History: Reports: Bronchitis, Recurrent, COPD Other Respiratory History: not on home 02 Gastrointestinal History: Reports: None Genitourinary History: Reports: Renal Calculus, UTI, 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: , Other (See Below) Other OB/BYN History: removal of "top layer of cervix" was early [place] Neurological History: Reports: Headaches, Chronic, Migraines Psychiatric History: Reports: None Endocrine/Metabolic History: Reports: Hypothyroidism Hematologic History: Reports: None Immunologic History: Reports: None Oncologic (Cancer) History: Reports: Cervix - Infectious Disease History Infectious Disease History: Reports: Chicken Pox - Past Surgical History HEENT Surgical History: Reports: None GI Surgical History: Reports: Cholecystectomy, Small Bowel Endocrine Surgical History: Reports: None Social & Family History - Family History Family Medical History: Noncontributory Cardiac: Reports: Bypass, Hypertension, OR Respiratory: Reports: COPD GI: Reports: GI bleed, Other (See Below) Other GI Family History: GI bleed from coumadin use Neurological: Reports: CVA Endocrine/Metabolic: Reports: Diabetes, Type I, Diabetes, type II, Obesity/MBI 30+ - Tobacco Use Smoking Status *Q: Former Smoker Years of Tobacco use: 20 Packs/Tins Daily: 1 Used Tobacco, but Quit: Yes Month Tobacco Last Used: 3 months ago Second Hand Smoke Exposure: No - Caffeine Use Caffeine Use: Reports: Soda Caffeine Use Comment: 1 drink/day - Recreational Drug Use Recreational Drug Use: No H&P Review of Systems - Review of Systems: Review Of Systems: See Below General: Reports: Weakness, Fatigue HEENT: Reports: Headaches Pulmonary: Reports: No Symptoms Cardiovascular: Reports: No Symptoms Gastrointestinal: Reports: No Symptoms Genitourinary: Reports: No Symptoms Musculoskeletal: Reports: No Symptoms Skin: Reports: No Symptoms Psychiatric: Reports: No Symptoms Neurological: Reports: No Symptoms Hematologic/Lymphatic: Reports: No Symptoms Immunologic: Reports: No Symptoms Exam - Exam Exam: See Below - Vital Signs Vital Signs: Last Vital Signs Temp 36.0 C 08/22/16 11:55 Pulse 77 08/22/16 15:34 Resp 15 08/22/16 14:24 BP 185/115 H 08/22/16 15:34 Pulse Ox 93 L 08/22/16 14:24 Weight: 107.5 kg - Exam Quality Assessment: No: Supplemental Oxygen General: Alert, Oriented, Cooperative HEENT: Conjunctiva Clear, EACs Clear, Mucosa Moist & [place], Nares Patent Neck: Supple, Trachea Midline. No: Lymphadenopathy Lungs: Clear to Auscultation, Normal Respiratory Effort Cardiovascular: Regular Rate, Regular Rhythm Abdomen: Normal Bowel Sounds, Soft. No: Peritoneal Signs Back Exam: Normal Inspection Extremities: Edema Skin: Warm, Dry, Intact Neurological: Cranial Nerves Intact Neuro Extensive - Mental Status: Alert, Oriented x3 Neuro Extensive - Motor, Sensory, Reflexes: Normal Gait Psychiatric: Alert, Normal Affect, Normal Mood - Patient Data Result Diagrams: 08/23/16 05:14 08/23/16 05:14 *Q Meaningful Use (ADM) - VTE *Q VTE Criteria *Q: - VTE Risk Assess *Q Each Risk Factor Represents 1 Point: Age 41 - 59 years, Swollen Legs, Current, Obesity (BMI greater than 30), Congestive Heart Failure, Less than 1 Month Total Score 1 Point Risk Factors: 4 - Stroke *Q Stroke Criteria *Q: - AMI *Q AMI Criteria *Q: - Problem List (1) Hypertensive heart disease with congestive heart failure SNOMED Code(s): 9706277 ICD Code: I11.0 - HYPERTENSIVE HEART DISEASE WITH HEART FAILURE Status: Chronic Priority: High Current Visit: Yes Problem Details: noncompliant due to financial considerations (2) CHF, Congestive heart failure SNOMED Code(s): 81618258 ICD Code: I50.9 - HEART FAILURE, UNSPECIFIED Status: Acute Priority: High Current Visit: Yes (3) Chest pain SNOMED Code(s): 29306583 ICD Code: R07.9 - CHEST PAIN, UNSPECIFIED Status: Acute Priority: Medium Current Visit: Yes Qualifiers: Chest pain type: chest pain on breathing Qualified Code(s): R07.1 - Chest pain on breathing Problem List Initiated/Reviewed/Updated: Yes Orders Last 24hrs: Active Orders 24 hr Category Date Time Status Patient Status [ADT] Routine ADT 08/22/16 15:51 Ordered Notify Provider Consults [RC] ASDIRECTED Care 08/22/16 15:57 Ordered Oxygen Therapy [RC] PRN Care 08/22/16 15:51 Ordered Up ad Meagan [RC] ASDIRECTED Care 08/22/16 15:51 Ordered VTE/DVT Education [RC] PER UNIT ROUTINE Care 08/22/16 15:51 Ordered Vital Signs [RC] Q4H Care 08/22/16 15:51 Ordered Consult to Physician [CONS] Routine Cons 08/22/16 15:51 Ordered 2 Gram Sodium Diet [DIET] Diet 08/22/16 Dinner Ordered CBC WITH AUTO DIFF [HEME] AM Lab 08/23/16 05:11 Ordered COMPREHENSIVE METABOLIC PN,CMP [CHEM] AM Lab 08/23/16 05:11 Ordered Acetaminophen [Tylenol] Med 08/22/16 15:51 Ordered 650 mg PO Q4H PRN Furosemide [Lasix] Med 08/23/16 09:00 Ordered 40 mg PO DAILY Levothyroxine Med 08/23/16 09:00 Ordered 25 mcg PO DAILY Losartan [Cozaar] Med 08/22/16 21:00 Ordered 50 mg PO BID Metoprolol Succinate [Toprol XL] Med 08/23/16 09:00 Ordered 50 mg PO DAILY Morphine Med 08/22/16 15:51 Ordered 2 mg IVPUSH Q2H PRN Nitroglycerin/D5W [Nitroglycerin 25 MG/D5W 250 ML] Med 08/22/16 16:00 Ordered 25 mg in 250 ml IV TITRATE Ondansetron [Zofran ODT] Med 08/22/16 15:51 Ordered 4 mg PO Q6H PRN Sodium Chloride 0.9% [Saline Flush] Med 08/22/16 15:51 Ordered 10 ml FLUSH ASDIRECTED PRN Sodium Chloride 0.9% [Saline Flush] Med 08/22/16 15:51 Ordered 2.5 ml FLUSH ASDIRECTED PRN Verapamil HCl [Verapamil Sr] Med 08/23/16 09:00 Ordered 240 mg PO DAILY oxyCODONE Med 08/22/16 15:51 Ordered 5 mg PO Q4H PRN Saline Lock Insert [OM.PC] Routine Oth 08/22/16 15:51 Ordered Resuscitation Status Routine Resus Stat 08/22/16 15:51 Ordered Medication Orders Acetaminophen (Tylenol) 650 mg PO Q4H PRN PRN Reason: Pain (Mild 1-3)/fever Furosemide (Lasix) 40 mg PO DAILY [facility] Levothyroxine Sodium (Levothyroxine) 25 mcg PO DAILY [facility] Losartan Potassium (Cozaar) 50 mg PO BID [facility] Metoprolol Succinate (Toprol Xl) 50 mg PO DAILY [facility] Morphine Sulfate (Morphine) 2 mg IVPUSH Q2H PRN PRN Reason: Pain (severe 7-10) Stop: 08/23/16 15:56 Non-Formulary Medication (Verapamil Hcl [Verapamil Sr]) 240 mg PO DAILY [facility] Ondansetron HCl (Zofran Odt) 4 mg PO Q6H PRN PRN Reason: nausea, able to take PO Oxycodone HCl (Oxycodone) 5 mg PO Q4H PRN PRN Reason: Pain (moderate 4-6) Sodium Chloride (Saline Flush) 10 ml FLUSH ASDIRECTED PRN PRN Reason: Keep Vein Open Sodium Chloride (Saline Flush) 2.5 ml FLUSH ASDIRECTED PRN PRN Reason: Keep Vein Open Sodium Chloride (Saline Flush) 10 ml FLUSH ASDIRECTED PRN PRN Reason: Keep Vein Open Sodium Chloride (Saline Flush) 2.5 ml FLUSH ASDIRECTED PRN PRN Reason: Keep Vein Open Assessment/Plan Comment:: Aug 22, 2016: The patient is a 31-year-old lady who in been admitted to the emergency department secondary to severe hypertension with evidence of endorgan damage. The patient also had been noncompliant with her medications secondary to financial interest. Patient says that she has gained weight secondary to "fluid" that is built up around her legs. Patient says that she has a history of fluid buildup in the lungs although it's not precisely clear as to whether his heart failure. I have consulted cardiology to help establish this. The patient also had come to the emergency room just in order to get medications refilled. On initial presentation patient's blood pressure was 213/124 mmHg. This had remained refractory to IV treatment. Patient was admitted to intensive care unit secondary to hypertensive emergency and a nitro drip was scheduled for the patient. The patient will remain in ICU although her blood pressure had been more controlled with the use of her medications. The patient's pain will be controlled with the use of medications appropriate to her pain level. Also I have spoken to the patient and advised her that I will prescribe her medications and refill them on discharge. The patient has been strongly recommended followup with her primary care physician. Patient may be ready for discharge in one to 2 days. The patient has been turned over to electronic ICU for monitoring and treatment. I'll see the patient on a daily basis.
[2016-08-22] MEDS: oxyCODONE 5 MG Tab PO PRN (16:53)
[2016-08-22] MEDS: amLODIPine 5 MG Tab PO SCH (17:41)
[2016-08-22] MEDS: hydrALAZINE 20 MG/ML SDV IVPUSH PRN (18:07)
[2016-08-22] MEDS: Losartan 50 MG Tab PO SCH (20:55)
[2016-08-22] MEDS: Enoxaparin 40 MG/0.4 ML Syringe SUBCUT SCH (22:32)
--- NOTE | 2016-08-22 23:47 | CONS ---
DATE OF CONSULTATION: DATE OF : 1975 PRIMARY CARE PHYSICIAN: Unknown PCP REASON FOR CONSULTATION: Severe hypertension. HISTORY OF PRESENT ILLNESS: This is a 41-year-old female with history of hypertension, hyperlipidemia, morbid obesity, and noncompliant, presented to the hospital due to shortness of breath and also elevated blood pressure. She has been taking Toprol-XL 50 mg once a day, Cozaar 50 mg twice a day, verapamil 240 mg once a day, Imdur 60 mg once a day, and Lasix 40 mg once a day. However, since Thursday she has run out of her Lasix. She did not have a primary care doctor every time that she review her medication and she got it from the emergency room, and she was recommended to come to the emergency room to get refill for her water pill. Apparently, she has a schedule to establish a new primary care doctor on this Thursday, but she got seen by a doctor in the emergency room first. She stated that she has gained 20 pounds since last Thursday as well as her blood pressure has been elevated to 171/110. She feels like her leg is more swollen and get more short of breath when she walks for only 20 feet. She has never been told that her heart function was weak and never had a heart attack or a stress test done. No nausea. No vomiting. No chest pain. She can lay flat. No orthopnea. No PND. No fever. No abdominal pain. REVIEW OF SYSTEMS: Seem to be negative 12 point except indicated in HPI. MEDICATIONS: She was given with metoprolol 5 mg IV x3 as well as clonidine and Lasix 40 mg IV x1. Initial blood pressure was 221/123 and then it was slightly improved to 185/115. EKG is still pending. PAST MEDICAL HISTORY: Including hyperlipidemia as well as hypertension. SOCIAL HISTORY: She was former smoker. No drug use. No alcoholic drinking. She is unemployed, stay home, live with her boyfriend. FAMILY HISTORY: Her father had a history of heart attack, CABG at the age of 54. ALLERGIES: No known drug allergies. PHYSICAL EXAMINATION: VITAL SIGNS: Blood pressure is 221/123 coming down to 185/115, heart rate of 84, her weight is 107.5 kilos, respirations 20, O2 saturation 95% on room air. HEENT: Not pale, no jaundice. Mouth: Dry. Slightly elevated JVD. HEART: Normal S1, S2. No murmur. LUNGS: Bilateral crackle. Leg edema 2+. ABDOMEN: Soft, nontender. Bowel sounds present. No hepatosplenomegaly. INVESTIGATION: CBC showed WBC 10, hematocrit of 40, hemoglobin 13, platelet is 221. Sodium 139, potassium 3.9, chloride 108, bicarb 21, BUN 13, creatinine 1.3, glucose 90. BNP is 483, is coming down from 555 from the last admission. Echocardiogram in June 2016, show mildly reduced ejection fraction at 45% to 50% and mild aortic regurgitation, [id number]-[id number] MR, [id number] TR, pseudo normal, LV diastolic dysfunction, and RVSP elevated to 53.9 mmHg. Her EKG in the past in June 2016, shows sinus rhythm with LVH and heart rate of 77, OK interval 161, QRS duration 116, QTc interval of 508. ASSESSMENT AND PLAN: This is a 41-year-old female with history of hypertension, hyperlipidemia, noncompliant with history of cardiomyopathy ejection fraction of 45% to 50%, unclear etiology, presented to the hospital with severe uncontrolled high blood pressure as well as congestive heart failure. We will put her back on her all other medication and as well as I will add amlodipine 10 mg now, and we do not have to aggressively lower her blood pressure. I would say her goal of the blood pressure control would be less than 180, and I will put on hydralazine 10 mg IV q.4 to 6 hours for the blood pressure more than 180, and if the blood pressure is not very well controlled by hydralazine, she should need IV nitroglycerin, IV drip. She has said she has been complying to the salt intake. I would screen her for renal artery stenosis by renal duplex as well as check her TSH as well as PTH for either aldosterone and renin as it could be unreliable because she is on ARB. I will also continue IV Lasix 40 mg IV twice a day tomorrow and reassess her volume status. JAVIER / MARQUIS /[id number]
[2016-08-23] MEDS: hydrALAZINE 20 MG/ML SDV IVPUSH PRN (01:58)
[2016-08-23] MEDS: oxyCODONE 5 MG Tab PO PRN (02:31)
[2016-08-23] MEDS: Furosemide 40 MG/4 ML VIAL IVPUSH SCH ×2 (05:37→13:52)
[2016-08-23] MEDS: Metoprolol Succinate 50 MG Tab.ER PO SCH (08:15)
[2016-08-23] MEDS: Losartan 50 MG Tab PO SCH ×2 (08:15→21:38)
[2016-08-23] MEDS: Verapamil 240 MG Tab.ER PO SCH (08:16)
[2016-08-23] MEDS: amLODIPine 5 MG Tab PO SCH (08:16)
[2016-08-23] MEDS: Levothyroxine 25 MCG Tab PO SCH (08:16)
[2016-08-23] MEDS ORDERED: Furosemide 40 MG Tab PO SCH (09:00)
--- NOTE | 2016-08-23 15:20 | PCM.PN ---
- General Info Date of Service: 08/23/16 Admission Dx/Problem (Free Text): Admission Diagnosis/Problem Admission Diagnosis/Problem Hypertensive heart disease with congestive heart failure Subjective Update: the patient is overall better today Functional Status: Reports: pain controlled, tolerating diet - Review of Systems General: Reports: Weakness HEENT: Reports: no symptoms Pulmonary: Reports: no symptoms Cardiovascular: Reports: Edema Gastrointestinal: Reports: No symptoms Genitourinary: Reports: no symptoms Musculoskeletal: Reports: no symptoms Skin: Reports: no symptoms Neurological: Reports: No Symptoms Psychiatric: Reports: no symptoms - Patient Data Vitals - most recent: Last Vital Signs Temp 36.9 C 08/23/16 04:00 Pulse 77 08/23/16 08:15 Resp 20 08/23/16 12:00 BP 112/64 08/23/16 12:00 Pulse Ox 95 08/23/16 12:00 Weight - most recent: 107.5 kg I&O - last 24 hours: Intake & Output 08/23/16 08/23/16 08/23/16 06:59 14:59 22:59 Intake Total 600 Output Total 4100 Balance -3500 Lab Results last 24 hrs: Laboratory Results - last 24 hr 08/22/16 08/23/16 08/23/16 Range/Units 19:50 05:14 05:14 WBC 12.82 H (4.0-11.0) K/uL RBC 4.67 (4.30-5.90) M/uL Hgb 14.3 (12.0-16.0) g/dL Hct 43.5 (36.0-46.0) % MCV 93.1 (80.0-98.0) fL MCH 30.6 (27.0-32.0) pg MCHC 32.9 (31.0-37.0) g/dL RDW Std Deviation 52.8 (28.0-62.0) fl RDW Coeff of Oli 16 H (11.0-15.0) % Plt Count 236 (150-400) K/uL MPV 10.80 (7.40-12.00) fL Neut % (Auto) 76.8 (48.0-80.0) % Lymph % (Auto) 13.4 L (16.0-40.0) % [place] % (Auto) 7.1 (0.0-15.0) % Eos % (Auto) 2.3 (0.0-7.0) % Baso % (Auto) 0.4 (0.0-1.5) % Neut # (Auto) 9.8 H (1.4-5.7) K/uL Lymph # (Auto) 1.7 (0.6-2.4) K/uL [place] # (Auto) 0.9 H (0.0-0.8) K/uL Eos # (Auto) 0.3 (0.0-0.7) K/uL Baso # (Auto) 0.1 (0.0-0.1) K/uL Nucleated RBC % 0.0 /100WBC Nucleated RBCs # 0 K/uL Sodium 137 (136-146) mmol/L Potassium 3.8 (3.5-5.1) mmol/L Chloride 105 (98-110) mmol/L Carbon Dioxide 21 (21-31) mmol/L BUN 11 (6.0-23.0) mg/dL Creatinine 1.2 (0.6-1.5) mg/dL Est Cr Clr Drug Dosing 43.42 mL/min Estimated GFR (MDRD) 49.0 ml/min Glucose 110 (60-110) mg/dL Calcium 8.9 (8.8-10.8) mg/dL Total Bilirubin 0.7 (0.1-1.5) mg/dL AST 20 (5-40) IU/L ALT 25 (8-54) IU/L Alkaline Phosphatase 97 (40-150) Total Protein 7.2 (6.0-8.0) g/dL Albumin 4.1 (3.5-5.0) g/dL Globulin 3.1 (2.0-3.5) g/dL Albumin/Globulin Ratio 1.3 (1.3-2.8) Free T4 (0.7-1.48) ng/dL TSH 3rd Generation (0.47-5.0) uIU/mL Urine Color YELLOW Urine Appearance CLEAR Urine pH 7.0 (5.0-8.0) Ur Specific [place] 1.010 (1.001-1.035) Urine Protein NEGATIVE (NEGATIVE) mg/dL Urine Glucose (UA) NEGATIVE (NEGATIVE) mg/dL Urine Ketones NEGATIVE (NEGATIVE) mg/dL Urine Occult Blood NEGATIVE (NEGATIVE) Urine Nitrite NEGATIVE (NEGATIVE) Urine Bilirubin NEGATIVE (NEGATIVE) Urine Urobilinogen 0.2 (<2.0) EU/dL Ur Leukocyte Esterase NEGATIVE (NEGATIVE) Urine RBC 0-1 (0-2/HPF) Urine WBC 0-1 (0-5/HPF) Ur Epithelial Cells OCCASIONAL (NONE-FEW) Urine Bacteria RARE (NEGATIVE) 08/23/16 08/23/16 Range/Units 05:14 Unknown WBC (4.0-11.0) K/uL RBC (4.30-5.90) M/uL Hgb (12.0-16.0) g/dL Hct (36.0-46.0) % MCV (80.0-98.0) fL MCH (27.0-32.0) pg MCHC (31.0-37.0) g/dL RDW Std Deviation (28.0-62.0) fl RDW Coeff of Oli (11.0-15.0) % Plt Count (150-400) K/uL MPV (7.40-12.00) fL Neut % (Auto) (48.0-80.0) % Lymph % (Auto) (16.0-40.0) % [place] % (Auto) (0.0-15.0) % Eos % (Auto) (0.0-7.0) % Baso % (Auto) (0.0-1.5) % Neut # (Auto) (1.4-5.7) K/uL Lymph # (Auto) (0.6-2.4) K/uL [place] # (Auto) (0.0-0.8) K/uL Eos # (Auto) (0.0-0.7) K/uL Baso # (Auto) (0.0-0.1) K/uL Nucleated RBC % /100WBC Nucleated RBCs # K/uL Sodium (136-146) mmol/L Potassium (3.5-5.1) mmol/L Chloride (98-110) mmol/L Carbon Dioxide (21-31) mmol/L BUN (6.0-23.0) mg/dL Creatinine (0.6-1.5) mg/dL Est Cr Clr Drug Dosing mL/min Estimated GFR (MDRD) ml/min Glucose (60-110) mg/dL Calcium (8.8-10.8) mg/dL Total Bilirubin (0.1-1.5) mg/dL AST (5-40) IU/L ALT (8-54) IU/L Alkaline Phosphatase (40-150) Total Protein (6.0-8.0) g/dL Albumin (3.5-5.0) g/dL Globulin (2.0-3.5) g/dL Albumin/Globulin Ratio (1.3-2.8) Free T4 0.70 (0.7-1.48) ng/dL TSH 3rd Generation 33.91 H (0.47-5.0) uIU/mL Urine Color Urine Appearance Urine pH (5.0-8.0) Ur Specific [place] (1.001-1.035) Urine Protein (NEGATIVE) mg/dL Urine Glucose (UA) (NEGATIVE) mg/dL Urine Ketones (NEGATIVE) mg/dL Urine Occult Blood (NEGATIVE) Urine Nitrite (NEGATIVE) Urine Bilirubin (NEGATIVE) Urine Urobilinogen (<2.0) EU/dL Ur Leukocyte Esterase (NEGATIVE) Urine RBC (0-2/HPF) Urine WBC (0-5/HPF) Ur Epithelial Cells (NONE-FEW) Urine Bacteria (NEGATIVE) Med Orders - Current: Current Medications Acetaminophen (Tylenol) 650 mg PO Q4H PRN PRN Reason: Pain (Mild 1-3)/fever Amlodipine Besylate (Norvasc) 10 mg PO DAILY [facility] Last Admin: 08/23/16 08:16 Dose: 10 mg Enoxaparin Sodium (Lovenox) 40 mg SUBCUT Q24H [facility] Last Admin: 08/22/16 22:32 Dose: 40 mg Hydralazine HCl (Apresoline) 10 mg IVPUSH Q4H PRN PRN Reason: Hypertension Last Admin: 08/23/16 01:58 Dose: 10 mg Nitroglycerin/Dextrose (Nitroglycerin 25 Mg/D5w 250 Ml) 25 mg in 250 mls @ 3 mls/hr IV TITRATE DYLON; 5 MCG/MIN PRN Reason: Protocol Levothyroxine Sodium (Levothyroxine) 25 mcg PO ACBREAKFAST [facility] Last Admin: 08/23/16 08:16 Dose: 25 mcg Losartan Potassium (Cozaar) 50 mg PO BID [facility] Last Admin: 08/23/16 08:15 Dose: 50 mg Metoprolol Succinate (Toprol Xl) 50 mg PO DAILY [facility] Last Admin: 08/23/16 08:15 Dose: 50 mg Morphine Sulfate (Morphine) 2 mg IVPUSH Q2H PRN PRN Reason: Pain (severe 7-10) Stop: 08/23/16 15:56 Ondansetron HCl (Zofran Odt) 4 mg PO Q6H PRN PRN Reason: nausea, able to take PO Oxycodone HCl (Oxycodone) 5 mg PO Q4H PRN PRN Reason: Pain (moderate 4-6) Last Admin: 08/23/16 02:31 Dose: 5 mg Sodium Chloride (Saline Flush) 10 ml FLUSH ASDIRECTED PRN PRN Reason: Keep Vein Open Sodium Chloride (Saline Flush) 2.5 ml FLUSH ASDIRECTED PRN PRN Reason: Keep Vein Open Sodium Chloride (Saline Flush) 10 ml FLUSH ASDIRECTED PRN PRN Reason: Keep Vein Open Sodium Chloride (Saline Flush) 2.5 ml FLUSH ASDIRECTED PRN PRN Reason: Keep Vein Open Verapamil HCl (Calan Sr) 240 mg PO DAILY [facility] Last Admin: 08/23/16 08:16 Dose: 240 mg Discontinued Medications Clonidine HCl (Catapres) 0.1 mg PO ONETIME ONE Stop: 08/22/16 14:52 Last Admin: 08/22/16 15:10 Dose: 0.1 mg Furosemide (Lasix) 40 mg IVPUSH NOW ONE Stop: 08/22/16 14:11 Last Admin: 08/22/16 14:24 Dose: 40 mg Furosemide (Lasix) 40 mg PO DAILY [facility] Furosemide (Lasix) 40 mg IVPUSH Q8H [facility] Stop: 08/23/16 14:01 Last Admin: 08/23/16 13:52 Dose: 40 mg Metoprolol Tartrate (Lopressor) 5 mg IVPUSH Q5M [facility] Stop: 08/22/16 15:11 Last Admin: 08/22/16 15:34 Dose: 5 mg Potassium Chloride (Klor-Con M20) 40 meq PO ONETIME ONE Stop: 08/22/16 14:11 Last Admin: 08/22/16 14:29 Dose: 40 meq - Exam Quality Assessment: No: supplemental oxygen General: alert, oriented, cooperative, no acute distress HEENT: Pupils equal, Pupils reactive Neck: supple, trachea midline Lungs: Clear to auscultation, Normal respiratory effort Cardiovascular: Regular Rate, Regular Rhythm Abdomen: bowel sounds present, soft, no tenderness, no distension Extremities: edema Skin: warm, dry, intact Neurological: no new focal deficit Psy/Mental Status: alert, normal affect, normal mood - Problem List & Annotations (1) Hypertensive heart disease with congestive heart failure SNOMED Code(s): 1683446 Code(s): I11.0 - HYPERTENSIVE HEART DISEASE WITH HEART FAILURE Status: Chronic Priority: High Current Visit: Yes Annotation/Comment:: noncompliant due to financial considerations (2) CHF, Congestive heart failure SNOMED Code(s): 95910598 Code(s): I50.9 - HEART FAILURE, UNSPECIFIED Status: Acute Priority: High Current Visit: Yes (3) Chest pain SNOMED Code(s): 51326565 Code(s): R07.9 - CHEST PAIN, UNSPECIFIED Status: Acute Priority: Medium Current Visit: Yes Qualifiers: Chest pain type: chest pain on breathing Qualified Code(s): R07.1 - Chest pain on breathing - Problem List Review Problem List Initiated/Reviewed/Updated: Yes - My Orders Last 24 Hours: My Active Orders 08/22/16 15:51 Patient Status [ADT] Routine Oxygen Therapy [RC] PRN Up ad Meagan [RC] ASDIRECTED Vital Signs [RC] Q4H Consult to Physician [CONS] Routine Acetaminophen [Tylenol] 650 mg PO Q4H PRN Morphine 2 mg IVPUSH Q2H PRN Ondansetron [Zofran ODT] 4 mg PO Q6H PRN Sodium Chloride 0.9% [Saline Flush] 10 ml FLUSH ASDIRECTED PRN Sodium Chloride 0.9% [Saline Flush] 2.5 ml FLUSH ASDIRECTED PRN oxyCODONE 5 mg PO Q4H PRN Saline Lock Insert [OM.PC] Routine Resuscitation Status Routine 08/22/16 15:57 Notify Provider Consults [RC] ASDIRECTED 08/22/16 16:00 Nitroglycerin/D5W [Nitroglycerin 25 MG/D5W 250 ML] 25 mg in 250 ml IV TITRATE 08/22/16 21:00 Losartan [Cozaar] 50 mg PO BID 08/22/16 22:30 Enoxaparin [Lovenox] 40 mg SUBCUT Q24H 08/22/16 Dinner 2 Gram Sodium Diet [DIET] 08/23/16 07:30 Levothyroxine 25 mcg PO ACBREAKFAST 08/23/16 09:00 Metoprolol Succinate [Toprol XL] 50 mg PO DAILY Verapamil [Calan SR] 240 mg PO DAILY 08/23/16 10:00 Transfer Patient (Change bed) [ADT] Routine Telemetry Monitoring [Cardiac Monitoring] [RC] . DIRECTED - Plan Plan:: Aug 22, 2016: The patient is a 31-year-old lady who in been admitted to the emergency department secondary to severe hypertension with evidence of endorgan damage. The patient also had been noncompliant with her medications secondary to financial interest. Patient says that she has gained weight secondary to "fluid" that is built up around her legs. Patient says that she has a history of fluid buildup in the lungs although it's not precisely clear as to whether his heart failure. I have consulted cardiology to help establish this. The patient also had come to the emergency room just in order to get medications refilled. On initial presentation patient's blood pressure was 213/124 mmHg. This had remained refractory to IV treatment. Patient was admitted to intensive care unit secondary to hypertensive emergency and a nitro drip was scheduled for the patient. The patient will remain in ICU although her blood pressure had been more controlled with the use of her medications. The patient's pain will be controlled with the use of medications appropriate to her pain level. Also I have spoken to the patient and advised her that I will prescribe her medications and refill them on discharge. The patient has been strongly recommended followup with her primary care physician. Patient may be ready for discharge in one to 2 days. The patient has been turned over to electronic ICU for monitoring and treatment. I'll see the patient on a daily basis. Aug 23, 2016: The patient is a 41-year-old lady who presented to the emergency department secondary to uncontrolled hypertension. On admission the patient had a blood pressure of 213/124 mmHg. This was assessed in the emergency department. Since admission the patient has been kept on her home medications and she does have an appointment with her primary care physician in 2 days. The patient overall has been doing relatively well. She has denied any pain issues been able to tolerate the diet. Patient's blood pressures have been well controlled. She is been downgraded out of ICU to med telemetry floor. The patient has been responsive enough to her antihypertensives and her blood pressure has been much better controlled. The patient will need to followup with her primary care physician as well as cardiology with regards to her suspected congestive heart failure. I suspect that the patient will likely be appropriate for discharge tomorrow and I will give the patient prescriptions for her medications. Patient also has been strongly counseled with regards to compliance.
[2016-08-23] MEDS: Enoxaparin 40 MG/0.4 ML Syringe SUBCUT SCH (21:38)
[2016-08-24] MEDS: Levothyroxine 25 MCG Tab PO SCH (06:31)
[2016-08-24] MEDS: amLODIPine 5 MG Tab PO SCH (08:13)
[2016-08-24] MEDS: Losartan 50 MG Tab PO SCH (08:13)
[2016-08-24] MEDS: Verapamil 240 MG Tab.ER PO SCH (08:13)
[2016-08-24 08:14] VITALS: BP 151/86
[2016-08-24] MEDS: Metoprolol Succinate 50 MG Tab.ER PO SCH (08:14)
--- NOTE | 2016-08-24 09:27 | PCM.DCSUM1 ---
Discharge Summary - Hospital Course Free Text/Narrative:: the patient was admitted secondary to hypertensive emergency and her blood pressure was controlled in ICU initially. The patient's medications have been refilled. - Discharge Data Discharge Date: 08/24/16 Discharge Disposition: Home, Self-Care 01 Condition: Good - Discharge Diagnosis/Problem(s) (1) Hypertensive heart disease with congestive heart failure SNOMED Code(s): 3406829 ICD Code: I11.0 - HYPERTENSIVE HEART DISEASE WITH HEART FAILURE Status: Suspected Priority: High Current Visit: Yes Problem Details: noncompliant due to financial considerations (2) CHF, Congestive heart failure SNOMED Code(s): 73796553 ICD Code: I50.9 - HEART FAILURE, UNSPECIFIED Status: Suspected Priority: High Current Visit: Yes (3) Chest pain SNOMED Code(s): 16081586 ICD Code: R07.9 - CHEST PAIN, UNSPECIFIED Status: Acute Priority: Medium Current Visit: Yes Qualifiers: Chest pain type: chest pain on breathing Qualified Code(s): R07.1 - Chest pain on breathing - Patient Summary/Data Consults: Consultations 08/22/16 15:51 Consult to Physician [CONS] Routine Hospital Course: Aug 24, 2016: The patient is a 41-year-old lady who presented to the emergency department on Aug 22, 2016 out of concern for possible congestive heart failure and not taking her medications. The patient was noted to be in hypertensive emergency and her blood pressure was difficult to control in the emergency department. Initially on presentation the patient's blood pressure was 213/124 mmHg. The patient had significant improvement of her blood pressure to the point that it was safe for her to be discharged home with the use of medications. All of her medications have been filled. Her blood pressure on discharge was 151/86 mmHg. The patient had been admitted to the ICU secondary to her hypertensive emergency with endorgan damage. Nitroglycerin drip had been ordered to help control her blood pressure however her blood pressure had improved sufficiently that this was not required. The patient was kept in ICU and the next day she was downgraded after she had good control of her blood pressure. The patient says that she will be compliant with her medications as she has inability to obtain them. I had a long conversation with the patient regarding compliance with medications. I recommended that the patient continue with a heart healthy diet and to have exercise as tolerated. The patient's medications have been renewed and she is to followup with primary care physician after hospitalization. Further, the patient should followup with the agricultural adviser that had been previously consulted. The patient's vital signs are currently stable and she is appropriate for discharge with the above recommendations. - Patient Instructions Diet: Heart Healthy Diet Activity: As Tolerated Driving: May Drive Today - Discharge Plan Prescriptions/Med Rec: Levothyroxine 88 mcg PO ACBREAKFAST #30 tablet Losartan Potassium 50 mg PO BID #60 tablet Metoprolol Succinate [Toprol XL] 50 mg PO DAILY #30 tab.er Verapamil HCl [Verapamil Sr] 240 mg PO DAILY #30 cap amLODIPine [Norvasc] 10 mg PO DAILY #30 tablet Home Medications: Home Meds Furosemide [Lasix] 40 mg PO DAILY #30 tablet 01/17/16 [Rx] Potassium Chloride 10 meq PO DAILY 08/22/16 [History] Levothyroxine 88 mcg PO ACBREAKFAST #30 tablet 08/24/16 [Rx] Losartan Potassium 50 mg PO BID #60 tablet 08/24/16 [Rx] Metoprolol Succinate [Toprol XL] 50 mg PO DAILY #30 tab.er 08/24/16 [Rx] Verapamil HCl [Verapamil Sr] 240 mg PO DAILY #30 cap 08/24/16 [Rx] amLODIPine [Norvasc] 10 mg PO DAILY #30 tablet 08/24/16 [Rx] atorvaSTATin Calcium [Atorvastatin Calcium] 10 mg PO DAILY #30 tab 08/24/16 [Rx] Patient Handouts: Hypertension Forms: ED Department Discharge Referrals: PCP,Unknown [Primary Care Provider] - - Discharge Summary/Plan Comment DC Time >30 min.: Yes - Patient Data Vitals - Most Recent: Last Vital Signs Temp 36.1 C 08/24/16 08:00 Pulse 90 08/24/16 08:14 Resp 18 08/24/16 08:00 BP 151/86 H 08/24/16 08:14 Pulse Ox 95 08/24/16 08:00 Weight - Most Recent: 105.2 kg I&O - Last 24 hours: Intake & Output 08/23/16 08/24/16 08/24/16 22:59 06:59 14:59 Intake Total 1000 900 Output Total 3400 950 Balance -2400 -50 Lab Results - Last 24 hrs: Laboratory Results - last 24 hr 0608/24/16 08/24/16 Range/Units Unknown 04:55 04:55 WBC 11.37 H (4.0-11.0) K/uL RBC 4.29 L (4.30-5.90) M/uL Hgb 13.2 (12.0-16.0) g/dL Hct 40.2 (36.0-46.0) % MCV 93.7 (80.0-98.0) fL MCH 30.8 (27.0-32.0) pg MCHC 32.8 (31.0-37.0) g/dL RDW Std Deviation 54.2 (28.0-62.0) fl RDW Coeff of Oli 16 H (11.0-15.0) % Plt Count 249 (150-400) K/uL MPV 10.10 (7.40-12.00) fL Neut % (Auto) 70.9 (48.0-80.0) % Lymph % (Auto) 20.3 (16.0-40.0) % [place] % (Auto) 5.7 (0.0-15.0) % Eos % (Auto) 2.5 (0.0-7.0) % Baso % (Auto) 0.6 (0.0-1.5) % Neut # (Auto) 8.1 H (1.4-5.7) K/uL Lymph # (Auto) 2.3 (0.6-2.4) K/uL [place] # (Auto) 0.7 (0.0-0.8) K/uL Eos # (Auto) 0.3 (0.0-0.7) K/uL Baso # (Auto) 0.1 (0.0-0.1) K/uL Nucleated RBC % 0.0 /100WBC Nucleated RBCs # 0 K/uL Sodium 140 (136-146) mmol/L Potassium 3.5 (3.5-5.1) mmol/L Chloride 107 (98-110) mmol/L Carbon Dioxide 23 (21-31) mmol/L BUN 13 (6.0-23.0) mg/dL Creatinine 1.3 (0.6-1.5) mg/dL Est Cr Clr Drug Dosing 40.08 mL/min Estimated GFR (MDRD) 44.7 ml/min Glucose 104 (60-110) mg/dL Calcium 8.7 L (8.8-10.8) mg/dL Total Bilirubin 0.5 (0.1-1.5) mg/dL AST 15 (5-40) IU/L ALT 21 (8-54) IU/L Alkaline Phosphatase 84 (40-150) Total Protein 6.6 (6.0-8.0) g/dL Albumin 3.8 (3.5-5.0) g/dL Globulin 2.8 (2.0-3.5) g/dL Albumin/Globulin Ratio 1.4 (1.3-2.8) Free T4 0.70 (0.7-1.48) ng/dL Med Orders - Current: Current Medications Acetaminophen (Tylenol) 650 mg PO Q4H PRN PRN Reason: Pain (Mild 1-3)/fever Last Admin: 08/23/16 23:00 Dose: 650 mg Amlodipine Besylate (Norvasc) 10 mg PO DAILY [facility] Last Admin: 08/24/16 08:13 Dose: 10 mg Enoxaparin Sodium (Lovenox) 40 mg SUBCUT Q24H [facility] Last Admin: 08/23/16 21:38 Dose: 40 mg Hydralazine HCl (Apresoline) 10 mg IVPUSH Q4H PRN PRN Reason: Hypertension Last Admin: 08/23/16 01:58 Dose: 10 mg Nitroglycerin/Dextrose (Nitroglycerin 25 Mg/D5w 250 Ml) 25 mg in 250 mls @ 3 mls/hr IV TITRATE DYLON; 5 MCG/MIN PRN Reason: Protocol Levothyroxine Sodium (Levothyroxine) 25 mcg PO ACBREAKFAST [facility] Last Admin: 08/24/16 06:31 Dose: 25 mcg Losartan Potassium (Cozaar) 50 mg PO BID [facility] Last Admin: 08/24/16 08:13 Dose: 50 mg Metoprolol Succinate (Toprol Xl) 50 mg PO DAILY [facility] Last Admin: 08/24/16 08:14 Dose: 50 mg Ondansetron HCl (Zofran Odt) 4 mg PO Q6H PRN PRN Reason: nausea, able to take PO Oxycodone HCl (Oxycodone) 5 mg PO Q4H PRN PRN Reason: Pain (moderate 4-6) Last Admin: 08/23/16 02:31 Dose: 5 mg Sodium Chloride (Saline Flush) 10 ml FLUSH ASDIRECTED PRN PRN Reason: Keep Vein Open Sodium Chloride (Saline Flush) 2.5 ml FLUSH ASDIRECTED PRN PRN Reason: Keep Vein Open Sodium Chloride (Saline Flush) 10 ml FLUSH ASDIRECTED PRN PRN Reason: Keep Vein Open Sodium Chloride (Saline Flush) 2.5 ml FLUSH ASDIRECTED PRN PRN Reason: Keep Vein Open Verapamil HCl (Calan Sr) 240 mg PO DAILY [facility] Last Admin: 08/24/16 08:13 Dose: 240 mg Discontinued Medications Clonidine HCl (Catapres) 0.1 mg PO ONETIME ONE Stop: 08/22/16 14:52 Last Admin: 08/22/16 15:10 Dose: 0.1 mg Furosemide (Lasix) 40 mg IVPUSH NOW ONE Stop: 08/22/16 14:11 Last Admin: 08/22/16 14:24 Dose: 40 mg Furosemide (Lasix) 40 mg PO DAILY [facility] Furosemide (Lasix) 40 mg IVPUSH Q8H [facility] Stop: 08/23/16 14:01 Last Admin: 08/23/16 13:52 Dose: 40 mg Metoprolol Tartrate (Lopressor) 5 mg IVPUSH Q5M [facility] Stop: 08/22/16 15:11 Last Admin: 08/22/16 15:34 Dose: 5 mg Morphine Sulfate (Morphine) 2 mg IVPUSH Q2H PRN PRN Reason: Pain (severe 7-10) Stop: 08/23/16 15:56 Potassium Chloride (Klor-Con M20) 40 meq PO ONETIME ONE Stop: 08/22/16 14:11 Last Admin: 08/22/16 14:29 Dose: 40 meq *Q Meaningful Use (DIS) - VTE *Q VTE Criteria *Q: - Stroke *Q Stroke Criteria *Q: - AMI *Q AMI Criteria *Q:
--- NOTE | 2016-08-25 14:23 | US ---
EXAM DATE: 08/22/16 PATIENT'S AGE: 41 Patient: HUGO LACKEY Facility: [place], [place] Site . Site : 1975 Study: US Abdomen Arterial [id number]/3/2017 11:07:13 AM Ordering Physician: Ciara Bell Final Report: HISTORY: 41-year-old with refractory hypertension. TECHNIQUE: Grayscale ultrasound of the kidneys with 2D and spectral analysis and color Doppler Imaging of the renal vessels. COMPARISON: None available. FINDINGS: Aortic velocity is 85 cm/s. Right kidney measures 10.2 x 3.8 x 7 cm. Renal cortical echogenicity and thickness are within normal limits. There is no sonographic evidence for hydronephrosis, mass, or stone. Maximal right renal artery velocity is 67 cm/s with corresponding terod-ex-qqwwxb ratio of 0.79. Acceleration and resistive indices are within normal limits. Left kidney measures 10.4 x 5.8 x 5.3 cm. Renal cortical echogenicity and thickness are within normal limits. There is no sonographic evidence for hydronephrosis, mass, or stone. Maximal left renal artery velocity is 54 cm/s with corresponding wouzs-uw-abpyzg ratio of 0.64. Acceleration and resistive indices are within normal limits. IMPRESSION: 1. No sonographic evidence for hemodynamically significant renal artery stenosis. Dictated by Arnoldo Murillo MD @ Aug 23 2016 2:12PM (Electronic Signature) Report Signed by Proxy. EDELMIRA
--- NOTE | 2016-08-26 14:23 | US ---
EXAM DATE: 08/22/16 PATIENT'S AGE: 41 Patient: HUGO LACKEY Facility: [facility] Site . Site : 1975 Study: US-Abdomen Arterial [id number]/3/2017 11:07:13 AM Ordering Physician: Ciara Bell Final Report: HISTORY: 41-year-old with refractory hypertension. TECHNIQUE: Grayscale ultrasound of the kidneys with 2D and spectral analysis and color Doppler Imaging of the renal vessels. COMPARISON: None available. FINDINGS: Aortic velocity is 85 cm/s. Right kidney measures 10.2 x 3.8 x 7 cm. Renal cortical echogenicity and thickness are within normal limits. There is no sonographic evidence for hydronephrosis, mass, or stone. Maximal right renal artery velocity is 67 cm/s with corresponding iilqm-md-yvuhwk ratio of 0.79. Acceleration and resistive indices are within normal limits. Left kidney measures 10.4 x 5.8 x 5.3 cm. Renal cortical echogenicity and thickness are within normal limits. There is no sonographic evidence for hydronephrosis, mass, or stone. Maximal left renal artery velocity is 54 cm/s with corresponding kphxy-iq-nlggrf ratio of 0.64. Acceleration and resistive indices are within normal limits. IMPRESSION: 1. No sonographic evidence for hemodynamically significant renal artery stenosis. Dictated by Arnoldo Murillo MD @ Aug 23 2016 2:12PM Signed by: Arnoldo Murillo MD @08/23/2016 2:16:49 PM (Electronic Signature) Report Signed by Proxy. EDELMIRA
== END 2016-08-24 09:35 | disposition home or self-care (01) | DRG 292 ==
LOC: MW.ED 11:37 → MW.MS 15:17 → MW.ICU 15:47
PROVIDERS: ADMIT Internal Medicine; ATTEND Internal Medicine
DX: I11.0 Hypertensive heart disease with heart failure (principal); Z68.41 Body mass index [BMI] 40.0-44.9, adult; R07.1 Chest pain on breathing; E78.5 Hyperlipidemia, unspecified; E66.01 Morbid (severe) obesity due to excess calories; E03.9 Hypothyroidism, unspecified; Z79.899 Other long term (current) drug therapy; Z87.891 Personal history of nicotine dependence
CPT/HCPCS: 36415; 71020; 71020-26; 76775; 76775-26; 80053; 80307; 81001; 82310; 83880; 83970; 84436; 84439; 84443; 85025; 93976; 93976-26; 96374; 96375; 99285; 99285-25; A9270-GY; J0360; J1650; J1940

== ENCOUNTER 2016-09-27 00:53 | Emergency (ER) | payer MEDICAID ==
--- NOTE | 2016-09-27 01:10 | EDM.PDOC ---
ED HPI GENERAL MEDICAL PROBLEM - General Stated Complaint: WATER RETENTION, LOW BLOOD PRESSURE Time Seen by Provider: 09/27/16 01:04 - History of Present Illness INITIAL COMMENTS - FREE TEXT/NARRATIVE: HISTORY AND PHYSICAL: History of present illness: Patient is 41-year-old female presents with a concern of blood pressure check she states her machine always been reading 101/67 which is lower than she is used to. She denies any other concern Review of systems: As per history of present illness and below otherwise all systems reviewed and negative. Past medical history: As per history of present illness and as reviewed below otherwise noncontributory. Surgical history: As per history of present illness and as reviewed below otherwise noncontributory. Social history: No reported history of drug or alcohol abuse. Family history: As per history of present illness and as reviewed below otherwise noncontributory. Physical exam: HEENT: Atraumatic, normocephalic, pupils reactive, negative for conjunctival pallor or scleral icterus, mucous membranes moist, throat clear, neck supple, nontender, trachea midline. Lungs: Clear to auscultation, breath sounds equal bilaterally, chest nontender. Heart: S1S2, regular, negative for clicks, rubs, or JVD. Abdomen: Soft, nondistended, nontender. Negative for masses or hepatosplenomegaly. Negative for costovertebral tenderness. Pelvis: Stable nontender. Genitourinary: Deferred. Rectal: Deferred. Extremities: Atraumatic, negative for cords or calf pain. Neurovascular unremarkable. Neuro: Awake, alert, oriented. Cranial nerves II through XII unremarkable. Cerebellum unremarkable. Motor and sensory unremarkable throughout. Exam nonfocal. Diagnostics: Deferred Therapeutics: None Impression: Him or one medical screening exam over 2 blood pressure check #3 history of hypertension Definitive disposition and diagnosis as appropriate pending reevaluation and review of above. - Related Data Allergies Allergy/AdvReac Type Severity Reaction Status Date / Time No Known Allergies Allergy Verified 09/27/16 01:06 Home Meds: Home Meds Furosemide [Lasix] 40 mg PO DAILY #30 tablet 01/17/16 [Rx] Potassium Chloride 10 meq PO DAILY 08/22/16 [History] Levothyroxine 88 mcg PO ACBREAKFAST #30 tablet 08/24/16 [Rx] Losartan Potassium 50 mg PO BID #60 tablet 08/24/16 [Rx] Metoprolol Succinate [Toprol XL] 50 mg PO DAILY #30 tab.er 08/24/16 [Rx] Verapamil HCl [Verapamil Sr] 240 mg PO DAILY #30 cap 08/24/16 [Rx] amLODIPine [Norvasc] 10 mg PO DAILY #30 tablet 08/24/16 [Rx] atorvaSTATin Calcium [Atorvastatin Calcium] 10 mg PO DAILY #30 tab 08/24/16 [Rx] Past Medical History HEENT History: Reports: Head Other HEENT History: headaches Cardiovascular History: Reports: Heart Failure, High Cholesterol, Hypertension, SOB on Exertion Respiratory History: Reports: Bronchitis, Recurrent, COPD Other Respiratory History: not on home 02 Gastrointestinal History: Reports: None Genitourinary History: Reports: Renal Calculus, UTI, Recurrent [employer]IAN History: Reports: , Other (See Below) Other OB/BYN History: removal of "top layer of cervix" was early [place] Neurological History: Reports: Headaches, Chronic, Migraines Psychiatric History: Reports: None Endocrine/Metabolic History: Reports: Hypothyroidism Hematologic History: Reports: None Immunologic History: Reports: None Oncologic (Cancer) History: Reports: Cervix - Infectious Disease History Infectious Disease History: Reports: Chicken Pox - Past Surgical History HEENT Surgical History: Reports: None GI Surgical History: Reports: Cholecystectomy, Small Bowel Endocrine Surgical History: Reports: None Social & Family History - Family History Family Medical History: Noncontributory Cardiac: Reports: Bypass, Hypertension, [place] Respiratory: Reports: COPD GI: Reports: GI bleed, Other (See Below) Other GI Family History: GI bleed from coumadin use Neurological: Reports: CVA Endocrine/Metabolic: Reports: Diabetes, Type I, Diabetes, type II, Obesity/MBI 30+ - Tobacco Use Smoking Status *Q: Former Smoker Years of Tobacco use: 20 Packs/Tins Daily: 1 Used Tobacco, but Quit: Yes Month Tobacco Last Used: 3 months ago Second Hand Smoke Exposure: No - Caffeine Use Caffeine Use: Reports: Soda Other Caffeine Use: rarely Caffeine Use Comment: 1 drink/day - Recreational Drug Use Recreational Drug Use: No ED ROS GENERAL - Review of Systems Review Of Systems: ROS reveals no pertinent complaints other than HPI. ED EXAM, GENERAL - Physical Exam Exam: See Below (See dictation) Departure - Departure Time of Disposition: 01:09 Disposition: Home, Self-Care 01 Condition: Good Clinical Impression: Encounter for medical screening examination - Discharge Information Additional Instructions: The following information is given to patients seen in the emergency department who are being discharged to home. This information is to outline your options for follow-up care. We provide all patients seen in our emergency department with a follow-up referral. The need for follow-up, as well as the timing and circumstances, are variable depending upon the specifics of your emergency department visit. If you don't have a primary care physician on staff, we will provide you with a referral. We always advise you to contact your personal physician following an emergency department visit to inform them of the circumstance of the visit and for follow-up with them and/or the need for any referrals to a consulting specialist. The emergency department will also refer you to a specialist when appropriate. This referral assures that you have the opportunity for followup care with a specialist. All of these measure are taken in an effort to provide you with optimal care, which includes your followup. Under all circumstances we always encourage you to contact your private physician who remains a resource for coordinating your care. When calling for followup care, please make the office aware that this follow-up is from your recent emergency room visit. If for any reason you are refused follow-up, please contact the [facility] emergency department at and asked to speak to the emergency department charge nurse. Continue current medications follow primary medical doctor 1-2 days return as needed as discussed
== END 2016-09-27 01:20 | disposition home or self-care (01) ==
LOC: MW.ED 00:53
CPT/HCPCS: 99282

== ENCOUNTER 2017-05-18 07:59 | Emergency (ER) | payer MEDICAID ==
[2017-05-18] MEDS ORDERED: Albuterol/Ipratropium 3.0-0.5 MG/3 ML Neb Soln NEB ONE (08:14)
[2017-05-18] MEDS ORDERED: methylPREDNISolone Sodium Succinate 125 MG/2 ML SDV IVPUSH ONE (08:14)
--- NOTE | 2017-05-18 08:14 | EDM.PDOC ---
ED HPI GENERAL MEDICAL PROBLEM - General Chief Complaint: Respiratory Problem Stated Complaint: CHEST PAIN, SHORTNESS OF BREATH Time Seen by Provider: 05/18/17 08:13 Source of Information: Reports: Patient - History of Present Illness INITIAL COMMENTS - FREE TEXT/NARRATIVE: HISTORY AND PHYSICAL: History of present illness: [Patient presents with a couple of complaints she has had cough over last 24-48 hours with some shortness of breath, she presents by private vehicle in no distress breathing is nonlabored she is able to speak full sentences clearly She also has a complaint of epigastric discomfort she has a history of cholecystectomy she relates this to out of 10 she states that earlier this morning after a shower she had vomited a couple times this is resolved there is been no nausea or vomiting all here in the emergency room No fever chills sweats no chest pain shortness breath headache dizziness or palpitation no bowel or urine symptoms ] Review of systems: As per history of present illness and below otherwise all systems reviewed and negative. Past medical history: As per history of present illness and as reviewed below otherwise noncontributory. Surgical history: As per history of present illness and as reviewed below otherwise noncontributory. Social history: No reported history of drug or alcohol abuse. Family history: As per history of present illness and as reviewed below otherwise noncontributory. Physical exam: HEENT: Atraumatic, normocephalic, pupils reactive, negative for conjunctival pallor or scleral icterus, mucous membranes moist, throat clear, neck supple, nontender, trachea midline. Lungs: Clear to auscultation, breath sounds equal bilaterally, chest nontender. Heart: S1S2, regular, negative for clicks, rubs, or JVD. Abdomen: Soft, nondistended, nontender. Negative for masses or hepatosplenomegaly. Negative for costovertebral tenderness. Pelvis: Stable nontender. Genitourinary: Deferred. Rectal: Deferred. Extremities: Atraumatic, negative for cords or calf pain. Neurovascular unremarkable. Neuro: Awake, alert, oriented. Cranial nerves II through XII unremarkable. Cerebellum unremarkable. Motor and sensory unremarkable throughout. Exam nonfocal. Diagnostics: [CBC CMP UA troponin BN peptide Chest 1 view EKG ] Therapeutics: [DuoNeb Solu-Medrol Normal saline bolus ] Z-Buddy 250 mg Medrol Dosepak HFA Impression: Acute bronchitis [Shortness of breath-resolved History of CHF and chronic history of baseline] Definitive disposition and diagnosis as appropriate pending reevaluation and review of above. - Related Data Allergies Allergy/AdvReac Type Severity Reaction Status Date / Time No Known Allergies Allergy Verified 05/18/17 08:07 Home Meds: Home Meds Potassium Chloride 10 meq PO DAILY 08/22/16 [History] Losartan Potassium 50 mg PO BID #60 tablet 08/24/16 [Rx] Metoprolol Succinate [Toprol XL] 50 mg PO DAILY #30 tab.er 08/24/16 [Rx] Verapamil HCl [Verapamil Sr] 240 mg PO DAILY #30 cap 08/24/16 [Rx] amLODIPine [Norvasc] 10 mg PO DAILY #30 tablet 08/24/16 [Rx] atorvaSTATin Calcium [Atorvastatin Calcium] 10 mg PO DAILY #30 tab 08/24/16 [Rx] Furosemide [Lasix] 60 mg PO BID 09/27/16 [History] Levothyroxine 137 mcg PO ACBREAKFAST 09/27/16 [History] Past Medical History HEENT History: Reports: Head Other HEENT History: headaches Cardiovascular History: Reports: Heart Failure, High Cholesterol, Hypertension, SOB on Exertion Respiratory History: Reports: Bronchitis, Recurrent, COPD Other Respiratory History: not on home 02 Gastrointestinal History: Reports: None Genitourinary History: Reports: Renal Calculus, UTI, Recurrent [employer] History: Reports: , Other (See Below) Other OB/BYN History: removal of "top layer of cervix" was early [place] Musculoskeletal History: Reports: None Neurological History: Reports: Headaches, Chronic, Migraines Psychiatric History: Reports: None Endocrine/Metabolic History: Reports: Hypothyroidism Hematologic History: Reports: None Immunologic History: Reports: None Oncologic (Cancer) History: Reports: Cervix Dermatologic History: Reports: None - Infectious Disease History Infectious Disease History: Reports: Chicken Pox - Past Surgical History Head Surgeries/Procedures: Reports: None HEENT Surgical History: Reports: None GI Surgical History: Reports: Cholecystectomy, Small Bowel Endocrine Surgical History: Reports: None Musculoskeletal Surgical History: Reports: None Dermatological Surgical History: Reports: None Social & Family History - Family History Family Medical History: Noncontributory Cardiac: Reports: Bypass, Hypertension, [place] Respiratory: Reports: COPD GI: Reports: GI bleed, Other (See Below) Other GI Family History: GI bleed from coumadin use Neurological: Reports: CVA Endocrine/Metabolic: Reports: Diabetes, Type I, Diabetes, type II, Obesity/MBI 30+ - Tobacco Use Smoking Status *Q: Former Smoker Years of Tobacco use: 20 Packs/Tins Daily: 1 Used Tobacco, but Quit: No Month Tobacco Last Used: 3 months ago Second Hand Smoke Exposure: No - Caffeine Use Caffeine Use: Reports: Other Other Caffeine Use: rarely Caffeine Use Comment: 1 drink/day - Recreational Drug Use Recreational Drug Use: No ED ROS GENERAL - Review of Systems Review Of Systems: ROS reveals no pertinent complaints other than HPI. ED EXAM, GENERAL - Physical Exam Exam: See Below Course - Vital Signs Last Recorded V/S: Last Vital Signs Temp 97.2 F 05/18/17 08:17 Pulse 85 05/18/17 08:17 Resp 20 05/18/17 08:17 BP 189/84 H 05/18/17 10:21 Pulse Ox 94 L 05/18/17 08:17 - Orders/Labs/Meds Orders: Active Orders 24 hr Category Date Time Status EKG Documentation Completion [RC] STAT Care 05/18/17 08:12 Active RT Aerosol Therapy [RC] ASDIRECTED Care 05/18/17 08:15 Active Sodium Chloride 0.9% [Normal Saline] 500 ml Med 05/18/17 08:15 Active IV STAT Medication Orders Sodium Chloride (Normal Saline) 500 mls @ 999 mls/hr IV STAT DYLON Last Admin: 05/18/17 08:29 Dose: 999 mls/hr Labs: Laboratory Tests 05/18/17 05/18/17 05/18/17 Range/Units 08:12 08:27 08:27 WBC 14.02 H (4.0-11.0) K/uL RBC 4.80 (4.30-5.90) M/uL Hgb 14.9 (12.0-16.0) g/dL Hct 44.2 (36.0-46.0) % MCV 92.1 (80.0-98.0) fL MCH 31.0 (27.0-32.0) pg MCHC 33.7 (31.0-37.0) g/dL RDW Std Deviation 46.5 (28.0-62.0) fl RDW Coeff of Oli 14 (11.0-15.0) % Plt Count 276 (150-400) K/uL MPV 10.60 (7.40-12.00) fL Neut % (Auto) 79.4 (48.0-80.0) % Lymph % (Auto) 14.2 L (16.0-40.0) % [place] % (Auto) 4.9 (0.0-15.0) % Eos % (Auto) 1.1 (0.0-7.0) % Baso % (Auto) 0.4 (0.0-1.5) % Neut # (Auto) 11.1 H (1.4-5.7) K/uL Lymph # (Auto) 2.0 (0.6-2.4) K/uL [place] # (Auto) 0.7 (0.0-0.8) K/uL Eos # (Auto) 0.2 (0.0-0.7) K/uL Baso # (Auto) 0.1 (0.0-0.1) K/uL Nucleated RBC % 0.0 /100WBC Nucleated RBCs # 0 K/uL Sodium 139 (136-146) mmol/L Potassium 4.1 (3.5-5.1) mmol/L Chloride 105 (98-110) mmol/L Carbon Dioxide 21 (21-31) mmol/L BUN 10 (6.0-23.0) mg/dL Creatinine 1.1 (0.6-1.5) mg/dL Est Cr Clr Drug Dosing TNP Estimated GFR (MDRD) 54.2 ml/min Glucose 97 (60-110) mg/dL Calcium 8.9 (8.8-10.8) mg/dL Total Bilirubin 0.2 (0.1-1.5) mg/dL AST 30 (5-40) IU/L ALT 27 (8-54) IU/L Alkaline Phosphatase 115 (40-150) Troponin I < 0.10 (0.0-0.29) NG/ML B-Natriuretic Peptide (<100) PG/ML Total Protein 7.4 (6.0-8.0) g/dL Albumin 3.8 (3.5-5.0) g/dL Globulin 3.6 H (2.0-3.5) g/dL Albumin/Globulin Ratio 1.1 L (1.3-2.8) Urine Color YELLOW Urine Appearance CLEAR Urine pH 6.0 (5.0-8.0) Ur Specific [place] 1.015 (1.001-1.035) Urine Protein TRACE (NEGATIVE) mg/dL Urine Glucose (UA) NEGATIVE (NEGATIVE) mg/dL Urine Ketones NEGATIVE (NEGATIVE) mg/dL Urine Occult Blood NEGATIVE (NEGATIVE) Urine Nitrite NEGATIVE (NEGATIVE) Urine Bilirubin NEGATIVE (NEGATIVE) Urine Urobilinogen 0.2 (<2.0) EU/dL Ur Leukocyte Esterase NEGATIVE (NEGATIVE) Urine RBC 0-1 (0-2/HPF) Urine WBC 0-2 (0-5/HPF) Ur Epithelial Cells MODERATE (NONE-FEW) Urine Bacteria RARE (NEGATIVE) 05/18/17 Range/Units 08:27 WBC (4.0-11.0) K/uL RBC (4.30-5.90) M/uL Hgb (12.0-16.0) g/dL Hct (36.0-46.0) % MCV (80.0-98.0) fL MCH (27.0-32.0) pg MCHC (31.0-37.0) g/dL RDW Std Deviation (28.0-62.0) fl RDW Coeff of Oli (11.0-15.0) % Plt Count (150-400) K/uL MPV (7.40-12.00) fL Neut % (Auto) (48.0-80.0) % Lymph % (Auto) (16.0-40.0) % [place] % (Auto) (0.0-15.0) % Eos % (Auto) (0.0-7.0) % Baso % (Auto) (0.0-1.5) % Neut # (Auto) (1.4-5.7) K/uL Lymph # (Auto) (0.6-2.4) K/uL [place] # (Auto) (0.0-0.8) K/uL Eos # (Auto) (0.0-0.7) K/uL Baso # (Auto) (0.0-0.1) K/uL Nucleated RBC % /100WBC Nucleated RBCs # K/uL Sodium (136-146) mmol/L Potassium (3.5-5.1) mmol/L Chloride (98-110) mmol/L Carbon Dioxide (21-31) mmol/L BUN (6.0-23.0) mg/dL Creatinine (0.6-1.5) mg/dL Est Cr Clr Drug Dosing Estimated GFR (MDRD) ml/min Glucose (60-110) mg/dL Calcium (8.8-10.8) mg/dL Total Bilirubin (0.1-1.5) mg/dL AST (5-40) IU/L ALT (8-54) IU/L Alkaline Phosphatase (40-150) Troponin I (0.0-0.29) NG/ML B-Natriuretic Peptide 49 (<100) PG/ML Total Protein (6.0-8.0) g/dL Albumin (3.5-5.0) g/dL Globulin (2.0-3.5) g/dL Albumin/Globulin Ratio (1.3-2.8) Urine Color Urine Appearance Urine pH (5.0-8.0) Ur Specific [place] (1.001-1.035) Urine Protein (NEGATIVE) mg/dL Urine Glucose (UA) (NEGATIVE) mg/dL Urine Ketones (NEGATIVE) mg/dL Urine Occult Blood (NEGATIVE) Urine Nitrite (NEGATIVE) Urine Bilirubin (NEGATIVE) Urine Urobilinogen (<2.0) EU/dL Ur Leukocyte Esterase (NEGATIVE) Urine RBC (0-2/HPF) Urine WBC (0-5/HPF) Ur Epithelial Cells (NONE-FEW) Urine Bacteria (NEGATIVE) Meds: Medications Generic Name Dose Route Start Last Admin Trade Name Freq PRN Reason Stop Dose Admin Sodium Chloride 500 mls @ 999 mls/hr 05/18/17 08:15 05/18/17 08:29 Normal Saline IV 999 mls/hr STAT DYLON Administration Discontinued Medications Generic Name Dose Route Start Last Admin Trade Name Freq PRN Reason Stop Dose Admin Albuterol/Ipratropium 3 ml 05/18/17 08:14 05/18/17 08:29 Duoneb 3.0-0.5 Mg/3 Ml NEB 05/18/17 08:15 3 ml ONETIME ONE Administration Enalaprilat 1.25 mg 05/18/17 08:41 05/18/17 09:33 Vasotec Iv IVPUSH 05/18/17 08:42 1.25 mg ONETIME ONE Administration Methylprednisolone Sodium Succinate 125 mg 05/18/17 08:14 05/18/17 08:29 Solu-Medrol IVPUSH 05/18/17 08:15 125 mg ONETIME ONE Administration Departure - Departure Time of Disposition: 12:13 Disposition: Home, Self-Care 01 Condition: Good Clinical Impression: Acute bronchitis - Discharge Information Referrals: PCP,None [Primary Care Provider] - Forms: ED Department Discharge Additional Instructions: The following information is given to patients seen in the emergency department who are being discharged to home. This information is to outline your options for follow-up care. We provide all patients seen in our emergency department with a follow-up referral. The need for follow-up, as well as the timing and circumstances, are variable depending upon the specifics of your emergency department visit. If you don't have a primary care physician on staff, we will provide you with a referral. We always advise you to contact your personal physician following an emergency department visit to inform them of the circumstance of the visit and for follow-up with them and/or the need for any referrals to a consulting specialist. The emergency department will also refer you to a specialist when appropriate. This referral assures that you have the opportunity for follow-up care with a specialist. All of these measure are taken in an effort to provide you with optimal care, which includes your follow-up. Under all circumstances we always encourage you to contact your private physician who remains a resource for coordinating your care. When calling for follow-up care, please make the office aware that this follow-up is from your recent emergency room visit. If for any reason you are refused follow-up, please contact the [facility] emergency department at and asked to speak to the emergency department charge nurse. - My Orders Last 24 Hours: My Active Orders 05/18/17 08:12 EKG Documentation Completion [RC] STAT 05/18/17 08:15 RT Aerosol Therapy [RC] ASDIRECTED Sodium Chloride 0.9% [Normal Saline] 500 ml IV STAT - Assessment/Plan Last 24 Hours: My Active Orders 05/18/17 08:12 EKG Documentation Completion [RC] STAT 05/18/17 08:15 RT Aerosol Therapy [RC] ASDIRECTED Sodium Chloride 0.9% [Normal Saline] 500 ml IV STAT
[2017-05-18] MEDS ORDERED: Sodium Chloride 0.9% 500 ML IV SCH (08:15)
[2017-05-18] MEDS ORDERED: Enalaprilat 1.25 MG/ML SDV IVPUSH ONE (08:41)
--- NOTE | 2017-05-18 09:03 | CR ---
EXAMINATION: Portable chest radiograph. HISTORY: Pain. FINDINGS: The trachea is midline. The cardiomediastinal silhouette is within normal limits. No pulmonary infilt rates, effusions or pneumothorax. Osseous structures appear unremarkable. IMPRESSION: No acute cardiopulmonary process.
[2017-05-18 09:08] LABS: CHLORIDE,CL 105 mmol/L (98-110); SODIUM,NA 139 mmol/L (136-146)
--- NOTE | 2017-05-18 11:22 | CT ---
CT of the abdomen and pelvis without contrast. HISTORY: Pain TECHNIQUE: Axial CT images were obtained of the abdomen and pelvis without contrast. Coronal and sagi ttal reconstructions obtained. FINDINGS: The lung bases are clear, no pleural effusion. The liver, spleen, adrenal glands, and pancreas appear unremarkable for noncontrast examination. Chol ecystectomy. There is no bulky retroperitoneal lymphadenopathy. No abdominal ascites. There are no calcifications noted within the kidneys or along the courses of the ureters bilaterally. The large and small bowel are normal in caliber without evidence of obstruction. The appendix appears normal. There is no bulky pelvic lymphadenopathy. No free fluid. No free air. The urinary bladder ap pears normal. There is a 3 cm left ovarian cyst noted. There are a few very tiny fat-containing incis ional hernias along the ventral abdomen. The visualized osseous structures appear normal. IMPRESSION: No acute findings within the abdomen or pelvis.
[2017-05-18 19:19] VITALS: BP 171/90
== END 2017-05-18 12:36 | disposition home or self-care (01) ==
LOC: MW.ED 07:59
DX: J20.9 Acute bronchitis, unspecified (principal); E03.9 Hypothyroidism, unspecified; I11.0 Hypertensive heart disease with heart failure; I50.9 Heart failure, unspecified; E78.00 Pure hypercholesterolemia, unspecified; J44.9 Chronic obstructive pulmonary disease, unspecified; Z79.899 Other long term (current) drug therapy; Z87.891 Personal history of nicotine dependence
CPT/HCPCS: 36415; 71045; 74176; 80053; 81001; 83880; 84484; 85025; 87804; 93005; 94640; 96361; 96374; 96375; 99285; J2930; J7040; 99284